=== PATIENT | male | born 1960 | race Caucasian/White ===

== ENCOUNTER 2020-05-04 23:19 | Observation (INO) ==
[2020-05-04] MEDS ORDERED: 0.9 % Sodium Chloride 1,000 ML ONE (23:35)
[2020-05-04] MEDS ORDERED: 0.9 % Sodium Chloride 1,000 ML IVC ONE (23:54)
[2020-05-05 00:05] LABS: Basophils % 0.2 %; Eosinophils % 0.1 %; Hematocrit 43.2 % (37.5-50.1); Hemoglobin 14.4 g/dL (12.9-16.9); Immature Granulocytes % 0.5 % (0-4); Lymphocytes # 1.5 K/mcL (0.6-4.6); Lymphocytes % 16.7 %; Mean Corpuscular HGB Conc 33.3 g/dL (31.6-35.5); Mean Corpuscular Hemoglobin 26.8 pg (28.0-33.3); Mean Corpuscular Volume 80.4 fL (83.0-100.0); Mean Platelet Volume 9.7 fL (9.4-12.4); Monocytes # 0.6 K/mcL (0.0-1.3); Neutrophils # 6.6 K/mcL (1.6-8.9); Platelet Count 303 K/mcL (140-400); Red Blood Count 5.37 M/mcL (4.19-5.50); Red Cell Distribution Width 12.7 % (11.5-14.5); Segmented Neutrophils % 75.5 %; White Blood Count 8.7 K/mcL (4.3-11.1)
[2020-05-05 00:12] LABS: Alanine Aminotransferase 31 Units/L (7-52); Albumin 2.8 g/dL (3.5-5.7); Albumin/Globulin Ratio 0.8 (1.1-2.2); Alkaline Phosphatase 130 Units/L (34-104); Aspartate Amino Transferase 28 Units/L (13-39); BUN/Creatinine Ratio 16 (6-26); Bilirubin,Total 0.7 mg/dL (0.3-1.0); Blood Urea Nitrogen 29 mg/dL (6-20); Calcium 8.2 mg/dL (8.6-10.3); Carbon Dioxide 22 mEq/L (23-29); Chloride 103 mEq/L (98-107); Globulin 3.3 g/dL (2.4-3.5); Glucose 166 mg/dL (70-105); Osmolality,Calculated 292 (280-300); Potassium 3.6 mEq/L (3.5-5.1); Sodium 136 mEq/L (136-145); Total Protein 6.1 g/dL (6.4-8.9); eGFR For African Americans 46 (> 60); eGFR For Non-African Americans 38 (> 60)
[2020-05-05 01:01] LABS: Troponin I < 0.03 ng/mL (< 0.04)
[2020-05-05] MEDS ORDERED: Azithromycin 500 MG in 0.9 % Sodium Chloride 250 ML IVPB ONE (02:14)
[2020-05-05] MEDS ORDERED: Acetaminophen 325 MG TABLET PO PRN (05:09)
[2020-05-05] MEDS ORDERED: Naloxone 0.4 MG/ML INJ IVP PRN (05:09)
[2020-05-05] MEDS ORDERED: Ondansetron 4 MG/2 ML VIAL IVP PRN (05:09)
[2020-05-05 06:23] LABS: Basophils % 0.3 %; Hematocrit 41.3 % (37.5-50.1); Hemoglobin 13.5 g/dL (12.9-16.9); Immature Granulocytes % 0.5 % (0-4); Lymphocytes % 17.6 %; Mean Corpuscular HGB Conc 32.7 g/dL (31.6-35.5); Mean Corpuscular Hemoglobin 27.1 pg (28.0-33.3); Mean Corpuscular Volume 82.8 fL (83.0-100.0); Monocytes # 0.5 K/mcL (0.0-1.3); Monocytes % 5.9 %; Platelet Count 315 K/mcL (140-400); Red Blood Count 4.99 M/mcL (4.19-5.50); Red Cell Distribution Width 12.7 % (11.5-14.5); Segmented Neutrophils % 75.7 %; White Blood Count 8.8 K/mcL (4.3-11.1)
[2020-05-05] MEDS: *HR* Heparin 5,000 UNIT/ML VIAL SQ SCH ×3 (06:23→20:53)
[2020-05-05 06:26] LABS: Lymphocytes # 1.6 K/mcL (0.6-4.6); Neutrophils # 6.7 K/mcL (1.6-8.9)
[2020-05-05 06:38] LABS: Albumin 2.8 g/dL (3.5-5.7); Albumin/Globulin Ratio 0.8 (1.1-2.2); Bilirubin,Total 0.6 mg/dL (0.3-1.0); Calcium 8.3 mg/dL (8.6-10.3); D-Dimer 626 ng/mLFEU (0-500); Globulin 3.4 g/dL (2.4-3.5); Potassium 3.9 mEq/L (3.5-5.1); Total Protein 6.2 g/dL (6.4-8.9)
[2020-05-05 06:39] LABS: Lactate Dehydrogenase 233 Units/L (140-271)
[2020-05-05 06:42] LABS: Fibrinogen > 1000 mg/dL (169-393)
[2020-05-05 06:52] LABS: Platelet Estimate Normal (Normal); Reactive Lymphocytes Present (Not Present); Smudge Cells Present (Not Present)
[2020-05-05 06:56] LABS: Ferritin 964 ng/mL (20-250)
[2020-05-05 06:58] LABS: Estimated Average Glucose 292 mg/dl
[2020-05-05] MEDS: Dexamethasone 4 MG/ML VIAL IVP SCH (09:15)
[2020-05-05 13:33] LABS: C-Reactive Protein 77 mg/L (Less than 10)
[2020-05-05] MEDS ORDERED: D5% in Water 1,000 ML IVC PRN (14:17)
[2020-05-05] MEDS ORDERED: Dextrose Gel 15 GM/37.5 ML TUBE PO PRN ×2 (14:17)
[2020-05-05] MEDS ORDERED: *HR* Dextrose 50 % in Water (Vial) 50 ML VIAL IVP PRN (14:17)
[2020-05-05 15:43] LABS: Estimated Average Glucose 292 mg/dl
[2020-05-05] MEDS: Insulin LISPRO 300 UNITS/3 ML VIAL SQ SCH (17:59)
[2020-05-05] MEDS ORDERED: Insulin LISPRO 300 UNITS/3 ML VIAL SQ SCH (21:00)
[2020-05-05] MEDS ORDERED: Insulin DETEMIR 100 UNIT/ML X5UNITS SQ SCH (21:00)
[2020-05-05 22:37] LABS: Bacteria,Urine Few per hpf (None-Few); Bilirubin,Urine Negative (Negative); Blood,Urine Small (Negative); Clarity,Urine Clear (Clear); Color,Urine Yellow (Yellow); Glucose,Urine (UA) >=1000 mg/dL (Normal); Hyaline Casts,Urine Few per lpf (None Seen); Ketones,Urine Trace mg/dL (Negative); Leukocyte Esterase,Urine Negative (Negative); Mucus,Urine Few per lpf (None-Few); Nitrite,Urine Negative (Negative); Protein,Urine >=300 mg/dL (Neg-Trace); RBC,Urine 0-3 per hpf (0-3); Specific Gravity,Urine 1.026 (1.010-1.025); Squamous Epithelial Cell,Urine Few per hpf (None-Few); Urobilinogen,Urine Normal (Normal)
[2020-05-06 04:12] VITALS: BP 172/93
[2020-05-06] MEDS ORDERED: amLODIPine 5 MG TABLET PO ONE (04:19)
[2020-05-06] MEDS: *HR* Heparin 5,000 UNIT/ML VIAL SQ SCH (04:25)
[2020-05-06 08:03] LABS: Hematocrit 38.8 % (37.5-50.1); Mean Corpuscular HGB Conc 33.5 g/dL (31.6-35.5); Mean Corpuscular Hemoglobin 27.1 pg (28.0-33.3); Mean Platelet Volume 10.2 fL (9.4-12.4); Platelet Count 325 K/mcL (140-400); Red Blood Count 4.79 M/mcL (4.19-5.50); Red Cell Distribution Width 12.4 % (11.5-14.5); White Blood Count 6.7 K/mcL (4.3-11.1)
[2020-05-06 08:12] LABS: D-Dimer 368 ng/mLFEU (0-500)
[2020-05-06 08:14] LABS: Fibrinogen 793 mg/dL (169-393)
[2020-05-06 08:23] LABS: Albumin 2.6 g/dL (3.5-5.7); Albumin/Globulin Ratio 0.9 (1.1-2.2); Bilirubin,Total 0.3 mg/dL (0.3-1.0); Calcium 8.4 mg/dL (8.6-10.3); Magnesium 2.3 mg/dL (1.6-2.6); Phosphorous 3.1 mg/dL (2.7-4.5); Potassium 3.7 mEq/L (3.5-5.1); Total Protein 5.6 g/dL (6.4-8.9)
[2020-05-06] MEDS: Insulin LISPRO 300 UNITS/3 ML VIAL SQ SCH (08:44)
[2020-05-06] MEDS: Dexamethasone 4 MG/ML VIAL IVP SCH (08:51)
[2020-05-06 09:15] LABS: Eosinophils # 0.1 K/mcL (0.0-0.6); Lymphocytes # 2.3 K/mcL (0.6-4.6); Monocytes # 0.3 K/mcL (0.0-1.3)
[2020-05-06 09:16] LABS: Platelet Estimate Normal (Normal); Reactive Lymphocytes Present (Not Present)
== END 2020-05-06 10:01 | disposition home or self-care (01) ==
LOC: 3BNU 23:19 → EMEROOARM 23:19 → 3BNU 05-05 05:16
PROVIDERS: ADMIT Student in an Organized Health Care Education/Training Program; ATTEND Student in an Organized Health Care Education/Training Program

== ENCOUNTER 2021-05-01 22:27 | Inpatient (IN) ==
[2021-05-02] MEDS ORDERED: Naloxone 0.4 MG/ML INJ IVP PRN (02:17)
[2021-05-02] MEDS ORDERED: Acetaminophen 325 MG TABLET PO PRN ×2 (02:17→02:19)
[2021-05-02] MEDS ORDERED: 0.9 % Sodium Chloride 1,000 ML IVC SCH (02:30)
[2021-05-02 03:05] LABS: Basophils % 0.4 %; Eosinophils # 0.3 K/mcL (0.0-0.6); Eosinophils % 2.6 %; Hematocrit 43.6 % (37.5-50.1); Hemoglobin 14.4 g/dL (12.9-16.9); Immature Granulocytes % 0.3 % (0-4); Lymphocytes # 2.7 K/mcL (0.6-4.6); Lymphocytes % 23.4 %; Mean Corpuscular Hemoglobin 27.8 pg (28.0-33.3); Mean Corpuscular Volume 84.2 fL (83.0-100.0); Mean Platelet Volume 9.9 fL (9.4-12.4); Monocytes # 0.8 K/mcL (0.0-1.3); Monocytes % 6.7 %; Neutrophils # 7.6 K/mcL (1.6-8.9); Platelet Count 416 K/mcL (140-400); Red Blood Count 5.18 M/mcL (4.19-5.50); Red Cell Distribution Width 13.2 % (11.5-14.5); Segmented Neutrophils % 66.6 %; White Blood Count 11.3 K/mcL (4.3-11.1)
[2021-05-02 03:11] LABS: INR 1.1; Prothrombin Time 12.1 Seconds (9.4-12.1)
[2021-05-02 03:13] LABS: Activated Partial Thrombo Time 34.9 Seconds (26.0-36.0)
[2021-05-02 03:30] LABS: Albumin 3.2 g/dL (3.5-5.7); Albumin/Globulin Ratio 1.1 (1.1-2.2); Bilirubin,Total 0.3 mg/dL (0.3-1.0); Calcium 8.9 mg/dL (8.6-10.3); Globulin 2.9 g/dL (2.4-3.5); Magnesium 2.2 mg/dL (1.6-2.6); Phosphorous 3.4 mg/dL (2.7-4.5); Potassium 4.3 mEq/L (3.5-5.1); Total Protein 6.1 g/dL (6.4-8.9)
[2021-05-02] MEDS: Ondansetron 4 MG/2 ML VIAL IVP PRN (05:04)
[2021-05-02] MEDS ORDERED: D5% in Water 1,000 ML IVC PRN (06:03)
[2021-05-02] MEDS ORDERED: Dextrose Gel 15 GM/37.5 ML TUBE PO PRN ×2 (06:03)
[2021-05-02] MEDS ORDERED: *HR* Dextrose 50 % in Water (Syg) 50 ML SYRINGE IVP PRN (06:03)
[2021-05-02] MEDS: Insulin LISPRO 300 UNITS/3 ML VIAL SUBQ SCH ×3 (08:16→17:25)
[2021-05-02] MEDS: Aspirin Enteric Coated 325 MG Tablet PO SCH (08:16)
[2021-05-02 09:56] LABS: Bacteria,Urine Few per hpf (None-Few); Bilirubin,Urine Negative (Negative); Blood,Urine Moderate (Negative); Clarity,Urine Clear (Clear); Color,Urine Colorless (Yellow); Glucose,Urine (UA) >=1000 mg/dL (Normal); Ketones,Urine Negative (Negative); Leukocyte Esterase,Urine Negative (Negative); Mucus,Urine Few per lpf (None-Few); Nitrite,Urine Negative (Negative); PH,Urine 6.5 pH Units (5.0-8.0); Protein,Urine >=300 mg/dL (Neg-Trace); RBC,Urine 0-3 per hpf (0-3); Specific Gravity,Urine 1.015 (1.010-1.025); Squamous Epithelial Cell,Urine Few per hpf (None-Few); Urobilinogen,Urine Normal (Normal); WBC,Urine 0-3 per hpf (0-3)
[2021-05-02] MEDS: Metoprolol XL (24 HR) Succ 50 MG TAB.ER.24H PO SCH (17:25)
[2021-05-02] MEDS: Valsartan 160 MG TABLET PO SCH (17:25)
[2021-05-02] MEDS ORDERED: *HR* Labetalol 20 MG/4 ML SYRINGE IVP ONE (23:10)
[2021-05-03 01:35] LABS: Basophils # 0.1 K/mcL (0.0-0.2); Basophils % 0.4 %; Eosinophils # 0.4 K/mcL (0.0-0.6); Eosinophils % 3.4 %; Hematocrit 38.8 % (37.5-50.1); Immature Granulocytes % 0.3 % (0-4); Lymphocytes # 3.2 K/mcL (0.6-4.6); Lymphocytes % 27.5 %; Mean Corpuscular HGB Conc 33.5 g/dL (31.6-35.5); Mean Corpuscular Hemoglobin 28.5 pg (28.0-33.3); Mean Corpuscular Volume 85.1 fL (83.0-100.0); Mean Platelet Volume 10.3 fL (9.4-12.4); Monocytes # 0.8 K/mcL (0.0-1.3); Monocytes % 7.2 %; Neutrophils # 7.1 K/mcL (1.6-8.9); Platelet Count 400 K/mcL (140-400); Red Blood Count 4.56 M/mcL (4.19-5.50); Red Cell Distribution Width 13.1 % (11.5-14.5); Segmented Neutrophils % 61.2 %; White Blood Count 11.6 K/mcL (4.3-11.1)
[2021-05-03 01:52] LABS: Calcium 8.3 mg/dL (8.6-10.3); Potassium 4.3 mEq/L (3.5-5.1)
[2021-05-03 02:17] LABS: Folate 5.8 ng/mL (3.0-16.0)
[2021-05-03] MEDS: Aspirin Enteric Coated 325 MG Tablet PO SCH (09:19)
[2021-05-03] MEDS: Metoprolol XL (24 HR) Succ 50 MG TAB.ER.24H PO SCH (09:19)
[2021-05-03] MEDS: Insulin LISPRO 300 UNITS/3 ML VIAL SUBQ SCH ×3 (09:19→17:50)
[2021-05-03] MEDS: Valsartan 160 MG TABLET PO SCH (09:19)
[2021-05-03] MEDS ORDERED: *HR* Labetalol 20 MG/4 ML SYRINGE IVP ONE ×2 (11:07→19:02)
[2021-05-03 12:59] LABS: Estimated Average Glucose 263 mg/dl; Hemoglobin A1C 10.8 %
[2021-05-03] MEDS ORDERED: Sodium Bicarbonate 75 MEQ in 0.45 % Sodium Chloride 1,000 ML IVC SCH (14:00)
[2021-05-03] MEDS: Fluticasone Propionate Nasal 50 MCG/SPRAY BOTTLE NS SCH (15:05)
[2021-05-03] MEDS: Ondansetron 4 MG/2 ML VIAL IVP PRN (15:06)
[2021-05-03] MEDS: hydrALAZINE 25 MG TABLET PO SCH ×2 (17:50→23:46)
[2021-05-04] MEDS: Fluticasone Propionate Nasal 50 MCG/SPRAY BOTTLE NS SCH (08:41)
[2021-05-04] MEDS: Metoprolol XL (24 HR) Succ 50 MG TAB.ER.24H PO SCH (08:42)
[2021-05-04] MEDS: Insulin LISPRO 300 UNITS/3 ML VIAL SUBQ SCH ×3 (08:42→17:50)
[2021-05-04] MEDS: hydrALAZINE 25 MG TABLET PO SCH ×3 (08:42→23:52)
[2021-05-04] MEDS: Valsartan 160 MG TABLET PO SCH (08:42)
[2021-05-04] MEDS: Aspirin Enteric Coated 325 MG Tablet PO SCH (08:42)
[2021-05-04] MEDS: amLODIPine 5 MG TABLET PO SCH (10:04)
[2021-05-04 10:25] LABS: Basophils # 0.1 K/mcL (0.0-0.2); Basophils % 0.7 %; Eosinophils # 0.4 K/mcL (0.0-0.6); Eosinophils % 4.4 %; Hematocrit 40.8 % (37.5-50.1); Hemoglobin 13.1 g/dL (12.9-16.9); Immature Granulocytes % 0.3 % (0-4); Lymphocytes % 20.5 %; Mean Corpuscular HGB Conc 32.1 g/dL (31.6-35.5); Mean Corpuscular Hemoglobin 27.4 pg (28.0-33.3); Mean Corpuscular Volume 85.4 fL (83.0-100.0); Mean Platelet Volume 10.5 fL (9.4-12.4); Monocytes # 0.7 K/mcL (0.0-1.3); Monocytes % 6.9 %; Neutrophils # 6.7 K/mcL (1.6-8.9); Platelet Count 381 K/mcL (140-400); Red Blood Count 4.78 M/mcL (4.19-5.50); Segmented Neutrophils % 67.2 %; White Blood Count 9.9 K/mcL (4.3-11.1)
[2021-05-04 10:45] LABS: Albumin 2.9 g/dL (3.5-5.7); Albumin/Globulin Ratio 1.1 (1.1-2.2); Bilirubin,Total 0.3 mg/dL (0.3-1.0); Calcium 8.4 mg/dL (8.6-10.3); Globulin 2.6 g/dL (2.4-3.5); Potassium 4.4 mEq/L (3.5-5.1); Total Protein 5.5 g/dL (6.4-8.9)
[2021-05-04] MEDS ORDERED: 0.9 % Sodium Chloride 1,000 ML IVC SCH (11:15)
[2021-05-04] MEDS ORDERED: Insulin DETEMIR 100 UNIT/ML X5UNITS SUBQ ONE (19:43)
[2021-05-04] MEDS ORDERED: Insulin LISPRO 300 UNITS/3 ML VIAL SUBQ SCH (21:00)
[2021-05-05 02:41] LABS: Basophils % 0.4 %; Eosinophils # 0.4 K/mcL (0.0-0.6); Eosinophils % 4.1 %; Hematocrit 35.9 % (37.5-50.1); Immature Granulocytes % 0.2 % (0-4); Lymphocytes # 2.5 K/mcL (0.6-4.6); Lymphocytes % 24.8 %; Mean Corpuscular HGB Conc 31.2 g/dL (31.6-35.5); Mean Corpuscular Volume 86.5 fL (83.0-100.0); Mean Platelet Volume 10.2 fL (9.4-12.4); Monocytes # 0.8 K/mcL (0.0-1.3); Monocytes % 8.3 %; Neutrophils # 6.3 K/mcL (1.6-8.9); Platelet Count 346 K/mcL (140-400); Red Blood Count 4.15 M/mcL (4.19-5.50); Segmented Neutrophils % 62.2 %; White Blood Count 10.2 K/mcL (4.3-11.1)
[2021-05-05 02:47] LABS: Hemoglobin 11.2 g/dL (12.9-16.9)
[2021-05-05 02:57] LABS: Albumin 2.6 g/dL (3.5-5.7); Albumin/Globulin Ratio 1.1 (1.1-2.2); Bilirubin,Total 0.2 mg/dL (0.3-1.0); Calcium 7.9 mg/dL (8.6-10.3); Globulin 2.3 g/dL (2.4-3.5); Potassium 4.1 mEq/L (3.5-5.1); Total Protein 4.9 g/dL (6.4-8.9)
[2021-05-05] MEDS ORDERED: Insulin LISPRO 300 UNITS/3 ML VIAL SUBQ SCH (07:30)
[2021-05-05 07:57] VITALS: BP 143/79; PULSE 82; TEMP 98.9; O2SAT 96
[2021-05-05] MEDS: Ondansetron 4 MG/2 ML VIAL IVP PRN (09:18)
[2021-05-05] MEDS: hydrALAZINE 25 MG TABLET PO SCH (09:20)
[2021-05-05] MEDS: Metoprolol XL (24 HR) Succ 50 MG TAB.ER.24H PO SCH (09:20)
[2021-05-05] MEDS: Aspirin Enteric Coated 325 MG Tablet PO SCH (09:21)
[2021-05-05] MEDS: amLODIPine 5 MG TABLET PO SCH (09:21)
[2021-05-05] MEDS: Valsartan 160 MG TABLET PO SCH (09:21)
== END 2021-05-05 11:23 | disposition home or self-care (01) | DRG 48 ==
LOC: 3BNU
PROVIDERS: ADMIT Student in an Organized Health Care Education/Training Program; ATTEND Student in an Organized Health Care Education/Training Program

== ENCOUNTER 2021-05-30 18:33 | Inpatient (IN) ==
[2021-05-30] MEDS ORDERED: *HR* Labetalol 20 MG/4 ML SYRINGE IVP ONE (23:23)
[2021-05-31] MEDS ORDERED: *HR* Heparin 5,000 UNIT/ML VIAL IVP PRN (01:55)
[2021-05-31] MEDS ORDERED: Perflutren Lipid Microsphere 1.3 ML in 0.9 % Sodium Chloride 8.7 ML IVP PRN (01:56)
[2021-05-31] MEDS ORDERED: Morphine Sulfate 2 MG/ML SYRINGE IVP PRN (01:57)
[2021-05-31] MEDS ORDERED: Nitroglycerin 0.4 MG TAB.SUBL SL PRN (02:02)
[2021-05-31] MEDS ORDERED: Menthol 1 EACH LOZENGE PO PRN (02:14)
[2021-05-31] MEDS ORDERED: Chloraseptic Spray 177 ML BOTTLE MM PRN (02:14)
[2021-05-31] MEDS ORDERED: Acetaminophen 325 MG TABLET PO PRN (02:17)
[2021-05-31] MEDS ORDERED: Naloxone 0.4 MG/ML INJ IVP PRN (02:17)
[2021-05-31] MEDS ORDERED: *HR* Dextrose 50 % in Water (Syg) 50 ML SYRINGE IVP PRN (02:21)
[2021-05-31] MEDS ORDERED: Dextrose Gel 15 GM/37.5 ML TUBE PO PRN ×2 (02:21)
[2021-05-31] MEDS ORDERED: D5% in Water 1,000 ML IVC PRN (02:21)
[2021-05-31] MEDS: Heparin 25,000UNIT/250ML 1/2NS 25,000 UNIT/250 ML IV.SOLN IVC SCH ×2 (02:22→22:08)
[2021-05-31] MEDS ORDERED: Azithromycin 500 MG in 0.9 % Sodium Chloride 250 ML IVPB SCH (03:00)
[2021-05-31] MEDS: Insulin LISPRO 300 UNITS/3 ML VIAL SUBQ SCH ×4 (05:53→23:25)
[2021-05-31] MEDS: cefTRIAXone 1,000 MG in 0.9 % Sodium Chloride Mini Bag 100 ML IVPB SCH ×2 (05:59→17:47)
[2021-05-31 06:38] LABS: Hematocrit 31.8 % (37.5-50.1); Hemoglobin 10.2 g/dL (12.9-16.9); Mean Corpuscular HGB Conc 32.1 g/dL (31.6-35.5); Mean Corpuscular Hemoglobin 28.1 pg (28.0-33.3); Mean Corpuscular Volume 87.6 fL (83.0-100.0); Mean Platelet Volume 10.1 fL (9.4-12.4); Platelet Count 434 K/mcL (140-400); Red Blood Count 3.63 M/mcL (4.19-5.50); Red Cell Distribution Width 12.6 % (11.5-14.5); White Blood Count 13.7 K/mcL (4.3-11.1)
[2021-05-31 06:48] LABS: Heparin anti-factor XA UFH 0.07 IU/mL (0.30-0.70); INR 1.2; Prothrombin Time 13.5 Seconds (9.4-12.1)
[2021-05-31 07:01] LABS: Calcium 8.3 mg/dL (8.6-10.3); Chol/HDL Ratio 5.8 (0-4.9); Magnesium 2.1 mg/dL (1.6-2.6); Potassium 3.7 mEq/L (3.5-5.1)
[2021-05-31] MEDS: Aspirin Enteric Coated 81 MG Tablet PO SCH (08:17)
[2021-05-31] MEDS ORDERED: *HR* Labetalol 20 MG/4 ML SYRINGE IVP PRN (08:41)
[2021-05-31 09:48] LABS: Estimated Average Glucose 229 mg/dl; Hemoglobin A1C 9.6 %
[2021-05-31] MEDS: Metoprolol XL (24 HR) Succ 50 MG TAB.ER.24H PO SCH (13:59)
[2021-05-31] MEDS: Azithromycin 500 MG in 0.9 % Sodium Chloride 250 ML IVPB SCH (17:49)
[2021-06-01] MEDS: Insulin LISPRO 300 UNITS/3 ML VIAL SUBQ SCH ×3 (05:15→17:19)
[2021-06-01] MEDS: cefTRIAXone 1,000 MG in 0.9 % Sodium Chloride Mini Bag 100 ML IVPB SCH ×2 (05:16→17:20)
[2021-06-01] MEDS: Aspirin Enteric Coated 81 MG Tablet PO SCH (08:24)
[2021-06-01] MEDS: Metoprolol XL (24 HR) Succ 50 MG TAB.ER.24H PO SCH (08:24)
[2021-06-01] MEDS: amLODIPine 5 MG TABLET PO SCH (11:59)
[2021-06-01 14:26] LABS: Hematocrit 33.7 % (37.5-50.1); Hemoglobin 10.5 g/dL (12.9-16.9); Mean Corpuscular HGB Conc 31.2 g/dL (31.6-35.5); Mean Corpuscular Hemoglobin 27.1 pg (28.0-33.3); Mean Corpuscular Volume 87.1 fL (83.0-100.0); Mean Platelet Volume 10.5 fL (9.4-12.4); Platelet Count 468 K/mcL (140-400); Red Blood Count 3.87 M/mcL (4.19-5.50); Red Cell Distribution Width 12.9 % (11.5-14.5)
[2021-06-01 14:54] LABS: Calcium 8.6 mg/dL (8.6-10.3)
[2021-06-01] MEDS: *HR* Heparin 5,000 UNIT/ML VIAL IVP PRN (15:28)
[2021-06-01] MEDS: Azithromycin 500 MG in 0.9 % Sodium Chloride 250 ML IVPB SCH (17:19)
[2021-06-02] MEDS: Insulin LISPRO 300 UNITS/3 ML VIAL SUBQ SCH ×4 (00:33→17:19)
[2021-06-02] MEDS: Heparin 25,000UNIT/250ML 1/2NS 25,000 UNIT/250 ML IV.SOLN IVC SCH (02:20)
[2021-06-02 05:03] LABS: Hematocrit 30.9 % (37.5-50.1); Hemoglobin 9.9 g/dL (12.9-16.9); Mean Corpuscular Hemoglobin 27.7 pg (28.0-33.3); Mean Corpuscular Volume 86.6 fL (83.0-100.0); Mean Platelet Volume 10.4 fL (9.4-12.4); Platelet Count 434 K/mcL (140-400); Red Blood Count 3.57 M/mcL (4.19-5.50); Red Cell Distribution Width 12.7 % (11.5-14.5); White Blood Count 14.1 K/mcL (4.3-11.1)
[2021-06-02] MEDS: cefTRIAXone 1,000 MG in 0.9 % Sodium Chloride Mini Bag 100 ML IVPB SCH ×2 (05:17→17:19)
[2021-06-02] MEDS: *HR* Heparin 5,000 UNIT/ML VIAL IVP PRN (05:20)
[2021-06-02 05:21] LABS: Calcium 8.2 mg/dL (8.6-10.3)
[2021-06-02] MEDS: Aspirin Enteric Coated 81 MG Tablet PO SCH (08:32)
[2021-06-02] MEDS: Metoprolol XL (24 HR) Succ 50 MG TAB.ER.24H PO SCH (08:32)
[2021-06-02] MEDS: amLODIPine 5 MG TABLET PO SCH (08:32)
[2021-06-02] MEDS: Azithromycin 500 MG in 0.9 % Sodium Chloride 250 ML IVPB SCH (17:20)
[2021-06-03] MEDS: Insulin LISPRO 300 UNITS/3 ML VIAL SUBQ SCH ×4 (00:46→17:34)
[2021-06-03] MEDS: Heparin 25,000UNIT/250ML 1/2NS 25,000 UNIT/250 ML IV.SOLN IVC SCH (05:00)
[2021-06-03] MEDS: cefTRIAXone 1,000 MG in 0.9 % Sodium Chloride Mini Bag 100 ML IVPB SCH ×2 (06:31→17:32)
[2021-06-03] MEDS: Metoprolol XL (24 HR) Succ 50 MG TAB.ER.24H PO SCH (08:40)
[2021-06-03] MEDS: Aspirin Enteric Coated 81 MG Tablet PO SCH (08:40)
[2021-06-03] MEDS: amLODIPine 5 MG TABLET PO SCH (08:41)
[2021-06-03 09:28] LABS: Hematocrit 32.2 % (37.5-50.1); Hemoglobin 10.1 g/dL (12.9-16.9); Mean Corpuscular HGB Conc 31.4 g/dL (31.6-35.5); Mean Corpuscular Hemoglobin 27.3 pg (28.0-33.3); Platelet Count 443 K/mcL (140-400); Red Cell Distribution Width 12.7 % (11.5-14.5); White Blood Count 14.6 K/mcL (4.3-11.1)
[2021-06-03 09:46] LABS: Calcium 8.8 mg/dL (8.6-10.3); Potassium 3.9 mEq/L (3.5-5.1)
[2021-06-03] MEDS: Azithromycin 500 MG in 0.9 % Sodium Chloride 250 ML IVPB SCH (21:35)
[2021-06-04] MEDS: 0.9 % Sodium Chloride 1,000 ML IVC SCH ×2 (02:07→19:44)
[2021-06-04] MEDS: Insulin LISPRO 300 UNITS/3 ML VIAL SUBQ SCH ×4 (02:07→18:32)
[2021-06-04] MEDS: cefTRIAXone 1,000 MG in 0.9 % Sodium Chloride Mini Bag 100 ML IVPB SCH ×2 (06:25→18:32)
[2021-06-04 06:52] LABS: Hematocrit 28.6 % (37.5-50.1); Hemoglobin 9.2 g/dL (12.9-16.9); Mean Corpuscular HGB Conc 32.2 g/dL (31.6-35.5); Mean Corpuscular Hemoglobin 28.3 pg (28.0-33.3); Mean Platelet Volume 10.2 fL (9.4-12.4); Platelet Count 413 K/mcL (140-400); Red Blood Count 3.25 M/mcL (4.19-5.50); Red Cell Distribution Width 12.8 % (11.5-14.5); White Blood Count 12.3 K/mcL (4.3-11.1)
[2021-06-04 07:10] LABS: Calcium 8.4 mg/dL (8.6-10.3); Potassium 3.9 mEq/L (3.5-5.1)
[2021-06-04] MEDS: amLODIPine 5 MG TABLET PO SCH (08:58)
[2021-06-04] MEDS: Metoprolol XL (24 HR) Succ 50 MG TAB.ER.24H PO SCH (08:59)
[2021-06-04] MEDS: Aspirin Enteric Coated 81 MG Tablet PO SCH (08:59)
[2021-06-04] MEDS ORDERED: *HR* Midazolam HCl 2 MG/2 ML VIAL ONE (15:33)
[2021-06-04] MEDS ORDERED: *HR* FentaNYL (PF) 100 MCG/2 ML VIAL ONE (15:33)
[2021-06-04] MEDS ORDERED: *HR* Heparin 10,000 UNIT/10 ML VIAL ONE (15:33)
[2021-06-04] MEDS ORDERED: Heparin 1,000 UNITS/500 mL 500 ML ONE (15:33)
[2021-06-04] MEDS ORDERED: ISOVUE-370 200 ML INFUS..BTL ONE (15:34)
[2021-06-04] MEDS ORDERED: 0.9 % Sodium Chloride 2,000 ML ONE (15:34)
[2021-06-04] MEDS ORDERED: Nitroglycerin 1,000 MCG/5 ML VIAL IV ONE (15:34)
[2021-06-04] MEDS ORDERED: *HR* Heparin 5,000 UNIT/ML VIAL IVP ONE (16:49)
[2021-06-04] MEDS ORDERED: *HR* Heparin 5,000 UNIT/ML VIAL IVP PRN (16:49)
[2021-06-04 18:26] LABS: Hematocrit 31.4 % (37.5-50.1); Mean Corpuscular HGB Conc 31.8 g/dL (31.6-35.5); Mean Corpuscular Hemoglobin 27.9 pg (28.0-33.3); Mean Corpuscular Volume 87.5 fL (83.0-100.0); Mean Platelet Volume 10.1 fL (9.4-12.4); Platelet Count 455 K/mcL (140-400); Red Blood Count 3.59 M/mcL (4.19-5.50); Red Cell Distribution Width 12.7 % (11.5-14.5); White Blood Count 12.6 K/mcL (4.3-11.1)
[2021-06-04 18:41] LABS: Heparin anti-factor XA UFH < 0.04 IU/mL (0.30-0.70); INR 1.2
[2021-06-04] MEDS: Heparin 25,000UNIT/250ML 1/2NS 25,000 UNIT/250 ML IV.SOLN IVC SCH (19:40)
[2021-06-04] MEDS: Azithromycin 500 MG in 0.9 % Sodium Chloride 250 ML IVPB SCH (19:43)
[2021-06-05] MEDS: Insulin LISPRO 300 UNITS/3 ML VIAL SUBQ SCH ×4 (00:12→17:30)
[2021-06-05 01:58] LABS: Basophils # 0.1 K/mcL (0.0-0.2); Basophils % 0.4 %; Eosinophils # 0.6 K/mcL (0.0-0.6); Eosinophils % 4.7 %; Hematocrit 30.4 % (37.5-50.1); Hemoglobin 9.4 g/dL (12.9-16.9); Immature Granulocytes % 1.1 % (0-4); Lymphocytes # 1.9 K/mcL (0.6-4.6); Lymphocytes % 15.2 %; Mean Corpuscular HGB Conc 30.9 g/dL (31.6-35.5); Mean Corpuscular Hemoglobin 27.4 pg (28.0-33.3); Mean Corpuscular Volume 88.6 fL (83.0-100.0); Mean Platelet Volume 10.3 fL (9.4-12.4); Monocytes # 1.1 K/mcL (0.0-1.3); Monocytes % 8.7 %; Neutrophils # 8.8 K/mcL (1.6-8.9); Platelet Count 384 K/mcL (140-400); Red Blood Count 3.43 M/mcL (4.19-5.50); Red Cell Distribution Width 12.8 % (11.5-14.5); Segmented Neutrophils % 69.9 %; White Blood Count 12.6 K/mcL (4.3-11.1)
[2021-06-05 02:16] LABS: Calcium 8.2 mg/dL (8.6-10.3); Potassium 4.1 mEq/L (3.5-5.1)
[2021-06-05] MEDS: cefTRIAXone 1,000 MG in 0.9 % Sodium Chloride Mini Bag 100 ML IVPB SCH ×2 (05:18→17:41)
[2021-06-05] MEDS ORDERED: Ondansetron 4 MG/2 ML VIAL IVP PRN (09:11)
[2021-06-05] MEDS: Metoprolol XL (24 HR) Succ 50 MG TAB.ER.24H PO SCH (09:12)
[2021-06-05] MEDS: calcitrioL 0.25 MCG CAPSULE PO SCH (09:13)
[2021-06-05] MEDS: amLODIPine 5 MG TABLET PO SCH (09:13)
[2021-06-05] MEDS: Aspirin Enteric Coated 81 MG Tablet PO SCH (09:13)
[2021-06-05] MEDS: Ergocalciferol (VIT D2) 50,000 UNIT (1.25MG) CAP PO SCH (09:13)
[2021-06-05] MEDS: *HR* Heparin 5,000 UNIT/ML VIAL IVP PRN (10:11)
[2021-06-05] MEDS: Heparin 25,000UNIT/250ML 1/2NS 25,000 UNIT/250 ML IV.SOLN IVC SCH (14:32)
[2021-06-05] MEDS: 0.9 % Sodium Chloride 1,000 ML IVC SCH (14:32)
[2021-06-05] MEDS: Isosorbide MONOnitrate (24 HR) 30 MG TAB.ER.24H PO SCH (16:24)
[2021-06-05] MEDS: Azithromycin 500 MG in 0.9 % Sodium Chloride 250 ML IVPB SCH (18:33)
[2021-06-06] MEDS: Insulin LISPRO 300 UNITS/3 ML VIAL SUBQ SCH ×5 (00:29→20:48)
[2021-06-06 04:07] LABS: Basophils # 0.1 K/mcL (0.0-0.2); Basophils % 0.4 %; Eosinophils # 0.6 K/mcL (0.0-0.6); Eosinophils % 4.2 %; Hematocrit 27.8 % (37.5-50.1); Immature Granulocytes % 0.9 % (0-4); Lymphocytes # 2.4 K/mcL (0.6-4.6); Lymphocytes % 18.1 %; Mean Corpuscular HGB Conc 32.4 g/dL (31.6-35.5); Mean Corpuscular Hemoglobin 28.7 pg (28.0-33.3); Mean Corpuscular Volume 88.5 fL (83.0-100.0); Mean Platelet Volume 10.3 fL (9.4-12.4); Monocytes # 1.1 K/mcL (0.0-1.3); Monocytes % 8.1 %; Platelet Count 384 K/mcL (140-400); Red Blood Count 3.14 M/mcL (4.19-5.50); Red Cell Distribution Width 12.9 % (11.5-14.5); Segmented Neutrophils % 68.3 %; White Blood Count 13.1 K/mcL (4.3-11.1)
[2021-06-06 04:08] LABS: Calcium 8.3 mg/dL (8.6-10.3); Potassium 3.9 mEq/L (3.5-5.1)
[2021-06-06] MEDS: Heparin 25,000UNIT/250ML 1/2NS 25,000 UNIT/250 ML IV.SOLN IVC SCH ×2 (05:30→21:48)
[2021-06-06] MEDS: cefTRIAXone 1,000 MG in 0.9 % Sodium Chloride Mini Bag 100 ML IVPB SCH ×2 (05:32→16:53)
[2021-06-06] MEDS: calcitrioL 0.25 MCG CAPSULE PO SCH (09:44)
[2021-06-06] MEDS: Isosorbide MONOnitrate (24 HR) 30 MG TAB.ER.24H PO SCH (09:44)
[2021-06-06] MEDS: Metoprolol XL (24 HR) Succ 50 MG TAB.ER.24H PO SCH (09:45)
[2021-06-06] MEDS: amLODIPine 5 MG TABLET PO SCH (09:45)
[2021-06-06] MEDS: Aspirin Enteric Coated 81 MG Tablet PO SCH (09:45)
[2021-06-07] MEDS: *HR* Heparin 5,000 UNIT/ML VIAL IVP PRN (00:05)
[2021-06-07] MEDS: cefTRIAXone 1,000 MG in 0.9 % Sodium Chloride Mini Bag 100 ML IVPB SCH ×2 (06:00→17:23)
[2021-06-07 07:33] LABS: Basophils # 0.1 K/mcL (0.0-0.2); Basophils % 0.4 %; Eosinophils # 0.5 K/mcL (0.0-0.6); Eosinophils % 3.5 %; Hematocrit 28.7 % (37.5-50.1); Hemoglobin 8.9 g/dL (12.9-16.9); Immature Granulocytes % 0.5 % (0-4); Lymphocytes # 2.5 K/mcL (0.6-4.6); Lymphocytes % 18.3 %; Mean Corpuscular Hemoglobin 27.1 pg (28.0-33.3); Mean Corpuscular Volume 87.5 fL (83.0-100.0); Mean Platelet Volume 10.3 fL (9.4-12.4); Monocytes # 1.1 K/mcL (0.0-1.3); Monocytes % 8.2 %; Neutrophils # 9.5 K/mcL (1.6-8.9); Platelet Count 368 K/mcL (140-400); Red Blood Count 3.28 M/mcL (4.19-5.50); Segmented Neutrophils % 69.1 %; White Blood Count 13.7 K/mcL (4.3-11.1)
[2021-06-07 07:52] LABS: Calcium 8.4 mg/dL (8.6-10.3); Potassium 4.3 mEq/L (3.5-5.1)
[2021-06-07] MEDS: Insulin LISPRO 300 UNITS/3 ML VIAL SUBQ SCH ×4 (08:35→21:34)
[2021-06-07] MEDS: Aspirin Enteric Coated 81 MG Tablet PO SCH (08:36)
[2021-06-07] MEDS: amLODIPine 5 MG TABLET PO SCH (08:36)
[2021-06-07] MEDS: Isosorbide MONOnitrate (24 HR) 30 MG TAB.ER.24H PO SCH (08:36)
[2021-06-07] MEDS: calcitrioL 0.25 MCG CAPSULE PO SCH (08:36)
[2021-06-07] MEDS: Metoprolol XL (24 HR) Succ 50 MG TAB.ER.24H PO SCH (08:36)
[2021-06-07 10:19] LABS: Bacteria,Urine Few per hpf (None-Few); Bilirubin,Urine Negative (Negative); Blood,Urine Small (Negative); Clarity,Urine Clear (Clear); Color,Urine Light-Yellow (Yellow); Glucose,Urine (UA) 300 mg/dL (Normal); Ketones,Urine Negative (Negative); Leukocyte Esterase,Urine Negative (Negative); Mucus,Urine Few per lpf (None-Few); Nitrite,Urine Negative (Negative); Protein,Urine >=300 mg/dL (Neg-Trace); RBC,Urine 0-3 per hpf (0-3); Specific Gravity,Urine 1.014 (1.010-1.025); Urobilinogen,Urine Normal (Normal); WBC,Urine 0-3 per hpf (0-3)
[2021-06-07] MEDS: Heparin 25,000UNIT/250ML 1/2NS 25,000 UNIT/250 ML IV.SOLN IVC SCH (10:43)
[2021-06-07 14:12] LABS: Adenovirus Not Detected (Not Detect); Bordetella Pertussis Not Detected (Not Detect); Chlamydophila pneumoniae Not Detected (Not Detect); Coronavirus 229E Not Detected (Not Detect); Coronavirus HKU1 Not Detected (Not Detect); Coronavirus NL63 Not Detected (Not Detect); Human Metapneumovirus Not Detected (Not Detect); Human Rhinovirus/Enterovirus Not Detected (Not Detect); Influenza A Subtype 2009 H1 Not Detected (Not Detect); Influenza B Not Detected (Not Detect); Mycoplasma pneumoniae Not Detected (Not Detect); Parainfluenza Virus 1 Not Detected (Not Detect); Parainfluenza Virus 2 Not Detected (Not Detect); Parainfluenza Virus 3 Not Detected (Not Detect); Parainfluenza Virus 4 Not Detected (Not Detect); Respiratory Syncytial Virus Not Detected (Not Detect); SARS-CoV-2 Not Detected (Not Detect)
[2021-06-07] MEDS ORDERED: carvediloL 6.25 MG TABLET PO SCH (17:00)
[2021-06-08] MEDS: Heparin 25,000UNIT/250ML 1/2NS 25,000 UNIT/250 ML IV.SOLN IVC SCH ×2 (00:32→14:11)
[2021-06-08 00:42] LABS: Basophils # 0.1 K/mcL (0.0-0.2); Basophils % 0.4 %; Eosinophils # 0.5 K/mcL (0.0-0.6); Eosinophils % 4.1 %; Hematocrit 28.1 % (37.5-50.1); Immature Granulocytes % 0.5 % (0-4); Lymphocytes # 2.7 K/mcL (0.6-4.6); Lymphocytes % 20.3 %; Mean Corpuscular Volume 87.3 fL (83.0-100.0); Mean Platelet Volume 10.3 fL (9.4-12.4); Monocytes % 7.6 %; Neutrophils # 8.9 K/mcL (1.6-8.9); Platelet Count 395 K/mcL (140-400); Red Blood Count 3.22 M/mcL (4.19-5.50); Red Cell Distribution Width 12.9 % (11.5-14.5); Segmented Neutrophils % 67.1 %; White Blood Count 13.3 K/mcL (4.3-11.1)
[2021-06-08 01:02] LABS: Calcium 8.3 mg/dL (8.6-10.3); Potassium 4.3 mEq/L (3.5-5.1)
[2021-06-08] MEDS: cefTRIAXone 1,000 MG in 0.9 % Sodium Chloride Mini Bag 100 ML IVPB SCH (05:10)
[2021-06-08] MEDS: Insulin LISPRO 300 UNITS/3 ML VIAL SUBQ SCH ×4 (08:45→21:26)
[2021-06-08] MEDS: amLODIPine 5 MG TABLET PO SCH (08:46)
[2021-06-08] MEDS: calcitrioL 0.25 MCG CAPSULE PO SCH (08:46)
[2021-06-08] MEDS: Aspirin Enteric Coated 81 MG Tablet PO SCH (08:46)
[2021-06-08] MEDS: carvediloL 6.25 MG TABLET PO SCH ×2 (08:46→16:19)
[2021-06-08] MEDS: Isosorbide MONOnitrate (24 HR) 30 MG TAB.ER.24H PO SCH (08:46)
[2021-06-08] MEDS: 0.9 % Sodium Chloride 1,000 ML IVC SCH (23:16)
[2021-06-09] MEDS: Heparin 25,000UNIT/250ML 1/2NS 25,000 UNIT/250 ML IV.SOLN IVC SCH (02:39)
[2021-06-09] MEDS ORDERED: 0.9 % Sodium Chloride 1,000 ML IVC SCH (03:00)
[2021-06-09 06:06] LABS: Basophils # 0.1 K/mcL (0.0-0.2); Basophils % 0.5 %; Eosinophils # 0.5 K/mcL (0.0-0.6); Eosinophils % 4.2 %; Hematocrit 29.5 % (37.5-50.1); Hemoglobin 9.4 g/dL (12.9-16.9); Immature Granulocytes % 0.6 % (0-4); Lymphocytes # 2.9 K/mcL (0.6-4.6); Lymphocytes % 24.5 %; Mean Corpuscular HGB Conc 31.9 g/dL (31.6-35.5); Mean Corpuscular Hemoglobin 28.1 pg (28.0-33.3); Mean Corpuscular Volume 88.3 fL (83.0-100.0); Mean Platelet Volume 10.8 fL (9.4-12.4); Monocytes % 8.5 %; Neutrophils # 7.4 K/mcL (1.6-8.9); Platelet Count 415 K/mcL (140-400); Red Blood Count 3.34 M/mcL (4.19-5.50); Segmented Neutrophils % 61.7 %
[2021-06-09 06:17] LABS: Calcium 8.7 mg/dL (8.6-10.3); Potassium 4.4 mEq/L (3.5-5.1)
[2021-06-09] MEDS: Insulin LISPRO 300 UNITS/3 ML VIAL SUBQ SCH ×4 (08:28→20:32)
[2021-06-09] MEDS: Aspirin Enteric Coated 81 MG Tablet PO SCH (08:30)
[2021-06-09] MEDS: Isosorbide MONOnitrate (24 HR) 30 MG TAB.ER.24H PO SCH (08:30)
[2021-06-09] MEDS: calcitrioL 0.25 MCG CAPSULE PO SCH (08:30)
[2021-06-09] MEDS: carvediloL 6.25 MG TABLET PO SCH ×2 (08:31→16:32)
[2021-06-09] MEDS: amLODIPine 5 MG TABLET PO SCH (08:31)
[2021-06-09] MEDS: Ergocalciferol (VIT D2) 50,000 UNIT (1.25MG) CAP PO SCH (08:37)
[2021-06-09] MEDS ORDERED: 0.9 % Sodium Chloride 2,000 ML ONE (09:43)
[2021-06-09] MEDS ORDERED: *HR* Midazolam HCl 2 MG/2 ML VIAL ONE (09:43)
[2021-06-09] MEDS ORDERED: *HR* FentaNYL (PF) 100 MCG/2 ML VIAL ONE (09:43)
[2021-06-09] MEDS ORDERED: Heparin 1,000 UNITS/500 mL 500 ML ONE (09:43)
[2021-06-09] MEDS ORDERED: ISOVUE-370 200 ML INFUS..BTL ONE (09:44)
[2021-06-09] MEDS ORDERED: *HR* Heparin 10,000 UNIT/10 ML VIAL ONE (09:44)
[2021-06-09] MEDS ORDERED: Nitroglycerin 1,000 MCG/5 ML VIAL IV ONE (09:44)
[2021-06-09] MEDS ORDERED: Tirofiban 12.5 MG/250ML 12.5 MG/250 ML BAG ONE (09:55)
[2021-06-09] MEDS ORDERED: Tirofiban 12.5 MG/250ML 12.5 MG/250 ML BAG IVC SCH (11:00)
[2021-06-09] MEDS: 0.9 % Sodium Chloride 1,000 ML IVC SCH (16:33)
[2021-06-10] MEDS: Insulin LISPRO 300 UNITS/3 ML VIAL SUBQ SCH ×3 (08:07→16:46)
[2021-06-10 08:08] LABS: Basophils % 0.3 %; Eosinophils # 0.4 K/mcL (0.0-0.6); Eosinophils % 3.7 %; Hematocrit 29.5 % (37.5-50.1); Immature Granulocytes % 0.4 % (0-4); Lymphocytes % 18.1 %; Mean Corpuscular HGB Conc 30.5 g/dL (31.6-35.5); Mean Corpuscular Hemoglobin 27.1 pg (28.0-33.3); Mean Corpuscular Volume 88.9 fL (83.0-100.0); Mean Platelet Volume 10.7 fL (9.4-12.4); Monocytes # 0.9 K/mcL (0.0-1.3); Monocytes % 8.2 %; Neutrophils # 7.8 K/mcL (1.6-8.9); Platelet Count 446 K/mcL (140-400); Red Blood Count 3.32 M/mcL (4.19-5.50); Red Cell Distribution Width 13.1 % (11.5-14.5); Segmented Neutrophils % 69.3 %; White Blood Count 11.3 K/mcL (4.3-11.1)
[2021-06-10] MEDS: amLODIPine 5 MG TABLET PO SCH (08:08)
[2021-06-10] MEDS: Aspirin Enteric Coated 81 MG Tablet PO SCH (08:08)
[2021-06-10] MEDS: Isosorbide MONOnitrate (24 HR) 30 MG TAB.ER.24H PO SCH (08:09)
[2021-06-10] MEDS: carvediloL 6.25 MG TABLET PO SCH ×2 (08:09→16:47)
[2021-06-10] MEDS: calcitrioL 0.25 MCG CAPSULE PO SCH (08:09)
[2021-06-10 08:36] LABS: Calcium 8.8 mg/dL (8.6-10.3)
[2021-06-10 11:01] VITALS: BP 130/74; PULSE 77; TEMP 98; O2SAT 94
[2021-06-12 14:54] LABS: Coronavirus OC43 DETECTED (Not Detect)
== END 2021-06-10 17:08 | disposition home or self-care (01) | DRG 174 ==
LOC: 3BNU → SUATTDRO 22:25
PROVIDERS: ADMIT Family Medicine; ATTEND Internal Medicine

== ENCOUNTER 2021-09-01 16:09 | Inpatient (IN) ==
[2021-09-01 18:18] LABS: Basophils # 0.1 K/mcL (0.0-0.2); Basophils % 0.2 %; Eosinophils # 0.1 K/mcL (0.0-0.6); Eosinophils % 0.3 %; Hemoglobin 12.6 g/dL (12.9-16.9); Immature Granulocytes % 0.5 % (0-4); Lymphocytes # 1.3 K/mcL (0.6-4.6); Lymphocytes % 5.7 %; Mean Corpuscular HGB Conc 33.2 g/dL (31.6-35.5); Mean Corpuscular Hemoglobin 27.3 pg (28.0-33.3); Mean Corpuscular Volume 82.4 fL (83.0-100.0); Mean Platelet Volume 9.3 fL (9.4-12.4); Monocytes # 1.5 K/mcL (0.0-1.3); Monocytes % 6.5 %; Neutrophils # 20.3 K/mcL (1.6-8.9); Platelet Count 641 K/mcL (140-400); Red Blood Count 4.61 M/mcL (4.19-5.50); Red Cell Distribution Width 13.5 % (11.5-14.5); Segmented Neutrophils % 86.8 %; White Blood Count 23.4 K/mcL (4.3-11.1)
[2021-09-01] MEDS ORDERED: Piperacillin/Tazobactam 3.375 GM in 0.9 % Sodium Chloride Mini Bag 100 ML IVPB ONE (18:31)
[2021-09-01 18:37] LABS: Albumin 3.2 g/dL (3.5-5.7); Albumin/Globulin Ratio 0.7 (1.1-2.2); Bilirubin,Total 0.4 mg/dL (0.3-1.0); Calcium 9.2 mg/dL (8.6-10.3); Globulin 4.5 g/dL (2.4-3.5); Total Protein 7.7 g/dL (6.4-8.9)
[2021-09-01] MEDS ORDERED: Acetaminophen 325 MG TABLET PO PRN (20:32)
[2021-09-01] MEDS ORDERED: Melatonin 3 MG TABLET PO PRN (20:32)
[2021-09-01] MEDS ORDERED: *HR* Promethazine 25 MG/ML VIAL IM PRN (20:32)
[2021-09-01] MEDS ORDERED: Ondansetron 4 MG/2 ML VIAL IVP PRN (20:32)
[2021-09-01] MEDS ORDERED: *HR* HYDROcodone/Acet 5/325 mg TABLET PO PRN (20:32)
[2021-09-01] MEDS ORDERED: Naloxone 0.4 MG/ML INJ IVP PRN (20:32)
[2021-09-01] MEDS ORDERED: *HR* OxyCODONE Immed Rel 5 MG TABLET PO PRN (20:32)
[2021-09-01] MEDS ORDERED: *HR* Dextrose 50 % in Water (Syg) 50 ML SYRINGE IVP PRN (20:36)
[2021-09-01] MEDS ORDERED: D5% in Water 1,000 ML IVC PRN (20:36)
[2021-09-01] MEDS ORDERED: Dextrose 4 GM Chewable Tablets PO PRN ×2 (20:36)
[2021-09-01] MEDS ORDERED: Insulin DETEMIR 100 UNIT/ML X5UNITS SUBQ SCH (21:00)
[2021-09-01] MEDS: Ringers Solution, Lactated 1,000 ML IVC SCH (22:31)
[2021-09-01] MEDS: *HR* Labetalol 20 MG/4 ML SYRINGE IVP PRN (23:07)
[2021-09-01] MEDS: Insulin LISPRO 300 UNITS/3 ML VIAL SUBQ SCH (23:54)
[2021-09-02 00:58] LABS: Basophils % 0.2 %; Eosinophils # 0.1 K/mcL (0.0-0.6); Eosinophils % 0.3 %; Hematocrit 32.3 % (37.5-50.1); Immature Granulocytes % 0.5 % (0-4); Lymphocytes # 1.9 K/mcL (0.6-4.6); Lymphocytes % 9.2 %; Mean Corpuscular HGB Conc 33.4 g/dL (31.6-35.5); Mean Corpuscular Hemoglobin 27.4 pg (28.0-33.3); Mean Platelet Volume 9.5 fL (9.4-12.4); Monocytes # 1.6 K/mcL (0.0-1.3); Monocytes % 7.8 %; Neutrophils # 17.3 K/mcL (1.6-8.9); Platelet Count 585 K/mcL (140-400); Red Blood Count 3.94 M/mcL (4.19-5.50); Red Cell Distribution Width 13.3 % (11.5-14.5); White Blood Count 21.1 K/mcL (4.3-11.1)
[2021-09-02 01:01] LABS: Hemoglobin 10.8 g/dL (12.9-16.9)
[2021-09-02 01:09] LABS: INR 1.4; Prothrombin Time 15.9 Seconds (9.4-12.1)
[2021-09-02 01:20] LABS: Albumin 2.7 g/dL (3.5-5.7); Albumin/Globulin Ratio 0.7 (1.1-2.2); Bilirubin,Total 0.4 mg/dL (0.3-1.0); Calcium 8.7 mg/dL (8.6-10.3); Chol/HDL Ratio 3.6 (0-4.9); Globulin 3.7 g/dL (2.4-3.5); Magnesium 1.9 mg/dL (1.6-2.6); Potassium 3.4 mEq/L (3.5-5.1); Total Protein 6.4 g/dL (6.4-8.9)
[2021-09-02] MEDS: Piperacillin/Tazobactam 3.375 GM in 0.9 % Sodium Chloride Mini Bag 100 ML IVPB SCH ×3 (03:03→20:31)
[2021-09-02] MEDS: Insulin LISPRO 300 UNITS/3 ML VIAL SUBQ SCH ×3 (05:33→17:35)
[2021-09-02 08:34] LABS: Hematocrit 34.6 % (37.5-50.1); Hemoglobin 11.2 g/dL (12.9-16.9)
[2021-09-02] MEDS: Aspirin Enteric Coated 81 MG Tablet PO SCH (09:04)
[2021-09-02] MEDS: carvediloL 6.25 MG TABLET PO SCH ×2 (09:04→15:35)
[2021-09-02] MEDS: Ringers Solution, Lactated 1,000 ML IVC SCH (09:04)
[2021-09-02 09:12] LABS: Estimated Average Glucose 258 mg/dl; Hemoglobin A1C 10.6 %
[2021-09-02 11:20] LABS: Uric Acid 6.3 mg/dL (2.3-7.6)
[2021-09-02] MEDS ORDERED: DAPTOmycin 550 MG in 0.9 % Sodium Chloride 100 ML IVPB SCH (15:00)
[2021-09-02] MEDS: 0.9 % Sodium Chloride 1,000 ML IVC SCH (15:13)
[2021-09-02] MEDS: polyethylene glycoL 3350 17 GM POWD.PACK PO SCH (20:30)
[2021-09-02 20:33] LABS: Bilirubin,Urine Negative (Negative); Blood,Urine Small (Negative); Clarity,Urine Clear (Clear); Color,Urine Light-Yellow (Yellow); Glucose,Urine (UA) 500 mg/dL (Normal); Ketones,Urine Negative (Negative); Leukocyte Esterase,Urine Negative (Negative); Mucus,Urine Few per lpf (None-Few); Nitrite,Urine Negative (Negative); Protein,Urine >=300 mg/dL (Neg-Trace); RBC,Urine 0-3 per hpf (0-3); Specific Gravity,Urine 1.016 (1.010-1.025); Squamous Epithelial Cell,Urine Few per hpf (None-Few); Urobilinogen,Urine Normal (Normal); WBC,Urine 0-3 per hpf (0-3)
[2021-09-02] MEDS: Insulin DETEMIR 100 UNIT/ML X5UNITS SUBQ SCH (20:34)
[2021-09-02 20:55] LABS: Protein/Creatinine Ratio,Urine 6.8 mg/mg (0.00-0.20); Sodium, Urine 52.3 mEq/L
[2021-09-03] MEDS: Insulin LISPRO 300 UNITS/3 ML VIAL SUBQ SCH ×5 (00:45→21:12)
[2021-09-03] MEDS: 0.9 % Sodium Chloride 1,000 ML IVC SCH (04:33)
[2021-09-03] MEDS: Piperacillin/Tazobactam 3.375 GM in 0.9 % Sodium Chloride Mini Bag 100 ML IVPB SCH ×3 (04:34→21:17)
[2021-09-03] MEDS: *HR* Labetalol 20 MG/4 ML SYRINGE IVP PRN (05:10)
[2021-09-03 05:56] LABS: Hematocrit 33.6 % (37.5-50.1); Mean Corpuscular HGB Conc 32.7 g/dL (31.6-35.5); Mean Corpuscular Hemoglobin 26.6 pg (28.0-33.3); Mean Corpuscular Volume 81.4 fL (83.0-100.0); Mean Platelet Volume 9.6 fL (9.4-12.4); Platelet Count 529 K/mcL (140-400); Red Blood Count 4.13 M/mcL (4.19-5.50); Red Cell Distribution Width 13.3 % (11.5-14.5)
[2021-09-03 06:04] LABS: Calcium 8.5 mg/dL (8.6-10.3); Potassium 3.5 mEq/L (3.5-5.1)
[2021-09-03] MEDS: carvediloL 6.25 MG TABLET PO SCH ×2 (09:26→18:28)
[2021-09-03] MEDS: Aspirin Enteric Coated 81 MG Tablet PO SCH (09:26)
[2021-09-03] MEDS: polyethylene glycoL 3350 17 GM POWD.PACK PO SCH ×2 (09:26→21:20)
[2021-09-03] MEDS: *HR* Heparin 5,000 UNIT/ML VIAL SQ SCH ×2 (14:41→21:18)
[2021-09-03] MEDS: Insulin DETEMIR 100 UNIT/ML X5UNITS SUBQ SCH (21:17)
[2021-09-04 02:15] LABS: Hematocrit 32.7 % (37.5-50.1); Mean Corpuscular HGB Conc 33.6 g/dL (31.6-35.5); Mean Corpuscular Hemoglobin 27.8 pg (28.0-33.3); Mean Corpuscular Volume 82.8 fL (83.0-100.0); Mean Platelet Volume 9.8 fL (9.4-12.4); Platelet Count 514 K/mcL (140-400); Red Blood Count 3.95 M/mcL (4.19-5.50); Red Cell Distribution Width 13.4 % (11.5-14.5); White Blood Count 16.2 K/mcL (4.3-11.1)
[2021-09-04] MEDS: *HR* Heparin 5,000 UNIT/ML VIAL SQ SCH ×3 (04:27→21:07)
[2021-09-04] MEDS: Piperacillin/Tazobactam 3.375 GM in 0.9 % Sodium Chloride Mini Bag 100 ML IVPB SCH ×3 (04:27→19:46)
[2021-09-04] MEDS: Insulin LISPRO 300 UNITS/3 ML VIAL SUBQ SCH ×4 (08:17→20:13)
[2021-09-04] MEDS: Aspirin Enteric Coated 81 MG Tablet PO SCH (08:26)
[2021-09-04] MEDS: carvediloL 6.25 MG TABLET PO SCH ×2 (08:26→16:40)
[2021-09-04] MEDS: polyethylene glycoL 3350 17 GM POWD.PACK PO SCH (08:27)
[2021-09-04 09:38] LABS: Calcium 8.8 mg/dL (8.6-10.3); Potassium 4.6 mEq/L (3.5-5.1)
[2021-09-04] MEDS ORDERED: polyethylene glycoL 3350 17 GM POWD.PACK PO PRN (10:12)
[2021-09-04] MEDS ORDERED: DAPTOmycin 750 MG in 0.9 % Sodium Chloride 100 ML IVPB SCH (16:00)
[2021-09-04] MEDS: *HR* Labetalol 20 MG/4 ML SYRINGE IVP PRN (21:07)
[2021-09-04] MEDS: Insulin DETEMIR 100 UNIT/ML X5UNITS SUBQ SCH (21:08)
[2021-09-05] MEDS: *HR* Labetalol 20 MG/4 ML SYRINGE IVP PRN ×2 (01:45→20:28)
[2021-09-05] MEDS: Piperacillin/Tazobactam 3.375 GM in 0.9 % Sodium Chloride Mini Bag 100 ML IVPB SCH ×3 (04:18→20:18)
[2021-09-05] MEDS: *HR* Heparin 5,000 UNIT/ML VIAL SQ SCH ×3 (05:22→20:21)
[2021-09-05 05:45] LABS: Hematocrit 32.3 % (37.5-50.1); Hemoglobin 10.7 g/dL (12.9-16.9); Mean Corpuscular HGB Conc 33.1 g/dL (31.6-35.5); Mean Corpuscular Hemoglobin 27.6 pg (28.0-33.3); Mean Corpuscular Volume 83.2 fL (83.0-100.0); Mean Platelet Volume 9.5 fL (9.4-12.4); Platelet Count 612 K/mcL (140-400); Red Blood Count 3.88 M/mcL (4.19-5.50); Red Cell Distribution Width 13.5 % (11.5-14.5); White Blood Count 15.1 K/mcL (4.3-11.1)
[2021-09-05 06:25] LABS: Calcium 8.9 mg/dL (8.6-10.3); Potassium 3.4 mEq/L (3.5-5.1)
[2021-09-05] MEDS: Insulin LISPRO 300 UNITS/3 ML VIAL SUBQ SCH ×4 (07:22→22:15)
[2021-09-05] MEDS: Aspirin Enteric Coated 81 MG Tablet PO SCH (07:57)
[2021-09-05] MEDS: carvediloL 6.25 MG TABLET PO SCH ×2 (07:57→16:05)
[2021-09-05] MEDS ORDERED: Lidocaine -MPF 2% 5 ML VIAL ONE (08:35)
[2021-09-05] MEDS ORDERED: *HR* FentaNYL (PF) 100 MCG/2 ML VIAL ONE (08:36)
[2021-09-05] MEDS ORDERED: Ringers Solution, Lactated 1,000 ML IVC SCH (09:00)
[2021-09-05] MEDS ORDERED: *HR* OxyCODONE Immed Rel 5 MG TABLET PO PRN (10:20)
[2021-09-05] MEDS ORDERED: Acetaminophen 325 MG TABLET PO PRN (10:20)
[2021-09-05] MEDS ORDERED: *HR* Promethazine 25 MG/ML VIAL IM PRN (10:20)
[2021-09-05] MEDS ORDERED: Naloxone 0.4 MG/ML INJ IVP PRN (10:20)
[2021-09-05] MEDS ORDERED: D5% in Water 1,000 ML IVC PRN (10:20)
[2021-09-05] MEDS ORDERED: polyethylene glycoL 3350 17 GM POWD.PACK PO PRN (10:20)
[2021-09-05] MEDS ORDERED: *HR* HYDROcodone/Acet 5/325 mg TABLET PO PRN (10:20)
[2021-09-05] MEDS ORDERED: Dextrose 4 GM Chewable Tablets PO PRN ×2 (10:20)
[2021-09-05] MEDS ORDERED: Ondansetron 4 MG/2 ML VIAL IVP PRN (10:20)
[2021-09-05] MEDS ORDERED: *HR* Dextrose 50 % in Water (Syg) 50 ML SYRINGE IVP PRN (10:20)
[2021-09-05] MEDS: Ringers Solution, Lactated 1,000 ML IVC SCH (10:51)
[2021-09-05] MEDS: Sodium Bicarbonate 150 MEQ in D5% in Water 1,000 ML IVC SCH (16:05)
[2021-09-05] MEDS: Insulin DETEMIR 100 UNIT/ML X5UNITS SUBQ SCH (22:15)
[2021-09-06] MEDS: *HR* Labetalol 20 MG/4 ML SYRINGE IVP PRN (00:25)
[2021-09-06] MEDS: Melatonin 3 MG TABLET PO PRN (00:25)
[2021-09-06] MEDS: Sodium Bicarbonate 150 MEQ in D5% in Water 1,000 ML IVC SCH ×2 (03:20→15:00)
[2021-09-06] MEDS: Piperacillin/Tazobactam 3.375 GM in 0.9 % Sodium Chloride Mini Bag 100 ML IVPB SCH ×3 (05:20→20:24)
[2021-09-06] MEDS: *HR* Heparin 5,000 UNIT/ML VIAL SQ SCH ×3 (05:22→20:21)
[2021-09-06 07:07] LABS: Basophils # 0.1 K/mcL (0.0-0.2); Basophils % 0.6 %; Eosinophils # 0.5 K/mcL (0.0-0.6); Eosinophils % 4.4 %; Hemoglobin 10.3 g/dL (12.9-16.9); Immature Granulocytes % 0.3 % (0-4); Lymphocytes # 2.2 K/mcL (0.6-4.6); Mean Corpuscular HGB Conc 33.2 g/dL (31.6-35.5); Mean Corpuscular Volume 81.4 fL (83.0-100.0); Mean Platelet Volume 8.9 fL (9.4-12.4); Monocytes # 0.9 K/mcL (0.0-1.3); Monocytes % 7.7 %; Neutrophils # 8.4 K/mcL (1.6-8.9); Platelet Count 553 K/mcL (140-400); Red Blood Count 3.81 M/mcL (4.19-5.50); Red Cell Distribution Width 13.6 % (11.5-14.5); White Blood Count 12.2 K/mcL (4.3-11.1)
[2021-09-06 07:27] LABS: Calcium 8.7 mg/dL (8.6-10.3); Phosphorous 4.2 mg/dL (2.7-4.5); Potassium 3.7 mEq/L (3.5-5.1)
[2021-09-06] MEDS ORDERED: Isosorbide MONOnitrate (24 HR) 30 MG TAB.ER.24H PO SCH (09:00)
[2021-09-06] MEDS: Insulin LISPRO 300 UNITS/3 ML VIAL SUBQ SCH ×4 (09:09→20:22)
[2021-09-06] MEDS: carvediloL 6.25 MG TABLET PO SCH ×2 (09:10→16:43)
[2021-09-06] MEDS: Aspirin Enteric Coated 81 MG Tablet PO SCH (09:10)
[2021-09-06] MEDS: Isosorbide MONOnitrate (24 HR) 30 MG TAB.ER.24H PO SCH (09:10)
[2021-09-06] MEDS ORDERED: Cyanocobalamin (B-12) 1,000 MCG/ML VIAL SQ ONE (12:42)
[2021-09-06] MEDS: Ringers Solution, Lactated 1,000 ML IVC SCH (14:39)
[2021-09-06] MEDS: DAPTOmycin 750 MG in 0.9 % Sodium Chloride 100 ML IVPB SCH (16:44)
[2021-09-06] MEDS: Insulin DETEMIR 100 UNIT/ML X5UNITS SUBQ SCH (20:23)
[2021-09-07] MEDS: Melatonin 3 MG TABLET PO PRN (00:29)
[2021-09-07] MEDS: Sodium Bicarbonate 150 MEQ in D5% in Water 1,000 ML IVC SCH ×2 (01:33→12:14)
[2021-09-07 01:52] LABS: Basophils # 0.1 K/mcL (0.0-0.2); Basophils % 0.5 %; Eosinophils # 0.4 K/mcL (0.0-0.6); Eosinophils % 3.2 %; Hemoglobin 9.3 g/dL (12.9-16.9); Immature Granulocytes % 0.5 % (0-4); Lymphocytes # 2.5 K/mcL (0.6-4.6); Lymphocytes % 18.7 %; Mean Corpuscular HGB Conc 33.2 g/dL (31.6-35.5); Mean Corpuscular Hemoglobin 27.2 pg (28.0-33.3); Mean Corpuscular Volume 81.9 fL (83.0-100.0); Monocytes % 7.3 %; Neutrophils # 9.3 K/mcL (1.6-8.9); Platelet Count 531 K/mcL (140-400); Red Blood Count 3.42 M/mcL (4.19-5.50); Red Cell Distribution Width 13.5 % (11.5-14.5); Segmented Neutrophils % 69.8 %; White Blood Count 13.3 K/mcL (4.3-11.1)
[2021-09-07 02:16] LABS: Calcium 8.1 mg/dL (8.6-10.3); Magnesium 1.9 mg/dL (1.6-2.6); Potassium 3.5 mEq/L (3.5-5.1)
[2021-09-07] MEDS: Piperacillin/Tazobactam 3.375 GM in 0.9 % Sodium Chloride Mini Bag 100 ML IVPB SCH ×2 (04:54→17:17)
[2021-09-07] MEDS: *HR* Heparin 5,000 UNIT/ML VIAL SQ SCH ×3 (04:54→20:48)
[2021-09-07] MEDS: Isosorbide MONOnitrate (24 HR) 30 MG TAB.ER.24H PO SCH (07:44)
[2021-09-07] MEDS: Aspirin Enteric Coated 81 MG Tablet PO SCH (07:44)
[2021-09-07] MEDS: carvediloL 6.25 MG TABLET PO SCH ×2 (07:45→17:16)
[2021-09-07] MEDS: Insulin LISPRO 300 UNITS/3 ML VIAL SUBQ SCH ×4 (07:45→20:49)
[2021-09-07] MEDS: Sodium Bicarbonate 75 MEQ in 0.45 % Sodium Chloride 1,000 ML IVC SCH (15:14)
[2021-09-07] MEDS: hydrALAZINE 10 MG TABLET PO SCH ×2 (15:14→20:49)
[2021-09-07] MEDS: Insulin DETEMIR 100 UNIT/ML X5UNITS SUBQ SCH (20:49)
[2021-09-08 02:03] LABS: Basophils # 0.1 K/mcL (0.0-0.2); Basophils % 0.3 %; Eosinophils # 0.6 K/mcL (0.0-0.6); Eosinophils % 3.9 %; Hematocrit 29.2 % (37.5-50.1); Hemoglobin 9.6 g/dL (12.9-16.9); Immature Granulocytes % 0.6 % (0-4); Lymphocytes # 3.3 K/mcL (0.6-4.6); Lymphocytes % 22.6 %; Mean Corpuscular HGB Conc 32.9 g/dL (31.6-35.5); Mean Corpuscular Volume 82.3 fL (83.0-100.0); Mean Platelet Volume 8.7 fL (9.4-12.4); Monocytes % 6.7 %; Neutrophils # 9.5 K/mcL (1.6-8.9); Platelet Count 562 K/mcL (140-400); Red Blood Count 3.55 M/mcL (4.19-5.50); Red Cell Distribution Width 13.5 % (11.5-14.5); Segmented Neutrophils % 65.9 %; White Blood Count 14.4 K/mcL (4.3-11.1)
[2021-09-08 02:23] LABS: Calcium 8.3 mg/dL (8.6-10.3); Magnesium 1.9 mg/dL (1.6-2.6); Potassium 3.4 mEq/L (3.5-5.1)
[2021-09-08] MEDS: Sodium Bicarbonate 75 MEQ in 0.45 % Sodium Chloride 1,000 ML IVC SCH (05:13)
[2021-09-08] MEDS: *HR* Heparin 5,000 UNIT/ML VIAL SQ SCH ×3 (05:14→21:32)
[2021-09-08] MEDS: Piperacillin/Tazobactam 3.375 GM in 0.9 % Sodium Chloride Mini Bag 100 ML IVPB SCH ×3 (05:14→21:49)
[2021-09-08] MEDS: Insulin LISPRO 300 UNITS/3 ML VIAL SUBQ SCH ×4 (07:46→21:58)
[2021-09-08] MEDS: Vitamin B Complex/Vit C/Vit E 1 EACH TABLET PO SCH (08:01)
[2021-09-08] MEDS: Isosorbide MONOnitrate (24 HR) 30 MG TAB.ER.24H PO SCH (08:01)
[2021-09-08] MEDS: hydrALAZINE 10 MG TABLET PO SCH ×3 (08:01→21:32)
[2021-09-08] MEDS: Aspirin Enteric Coated 81 MG Tablet PO SCH (08:01)
[2021-09-08] MEDS: carvediloL 6.25 MG TABLET PO SCH ×2 (08:01→16:14)
[2021-09-08] MEDS: DAPTOmycin 750 MG in 0.9 % Sodium Chloride 100 ML IVPB SCH (16:16)
[2021-09-08] MEDS: Melatonin 3 MG TABLET PO PRN (21:33)
[2021-09-08] MEDS: Insulin DETEMIR 100 UNIT/ML X5UNITS SUBQ SCH (21:45)
[2021-09-09 02:04] LABS: Basophils # 0.1 K/mcL (0.0-0.2); Basophils % 0.6 %; Eosinophils # 0.6 K/mcL (0.0-0.6); Eosinophils % 4.7 %; Hematocrit 28.2 % (37.5-50.1); Hemoglobin 9.3 g/dL (12.9-16.9); Immature Granulocytes % 0.4 % (0-4); Lymphocytes # 3.3 K/mcL (0.6-4.6); Lymphocytes % 24.7 %; Mean Corpuscular Hemoglobin 27.6 pg (28.0-33.3); Mean Corpuscular Volume 83.7 fL (83.0-100.0); Mean Platelet Volume 9.1 fL (9.4-12.4); Monocytes % 7.4 %; Neutrophils # 8.3 K/mcL (1.6-8.9); Platelet Count 622 K/mcL (140-400); Red Blood Count 3.37 M/mcL (4.19-5.50); Red Cell Distribution Width 13.6 % (11.5-14.5); Segmented Neutrophils % 62.2 %; White Blood Count 13.4 K/mcL (4.3-11.1)
[2021-09-09 02:24] LABS: Calcium 8.6 mg/dL (8.6-10.3); Magnesium 2.1 mg/dL (1.6-2.6); Potassium 4.1 mEq/L (3.5-5.1)
[2021-09-09] MEDS: *HR* Heparin 5,000 UNIT/ML VIAL SQ SCH ×3 (06:12→21:40)
[2021-09-09] MEDS: Piperacillin/Tazobactam 3.375 GM in 0.9 % Sodium Chloride Mini Bag 100 ML IVPB SCH (06:16)
[2021-09-09] MEDS: Vitamin B Complex/Vit C/Vit E 1 EACH TABLET PO SCH (08:16)
[2021-09-09] MEDS: carvediloL 6.25 MG TABLET PO SCH ×2 (08:16→17:31)
[2021-09-09] MEDS: Aspirin Enteric Coated 81 MG Tablet PO SCH (08:20)
[2021-09-09] MEDS: Insulin LISPRO 300 UNITS/3 ML VIAL SUBQ SCH ×4 (08:20→19:42)
[2021-09-09] MEDS ORDERED: NIFEdipine XL (24 HR) 60 MG TAB.ER.24 PO SCH (09:00)
[2021-09-09] MEDS ORDERED: Isosorbide MONOnitrate (24 HR) 60 MG TAB.ER.24H PO SCH (09:00)
[2021-09-09] MEDS ORDERED: 0.9 % Sodium Chloride 1,000 ML IVC SCH (10:15)
[2021-09-09] MEDS ORDERED: Famotidine 20 MG/2 ML VIAL IVP ONE (14:28)
[2021-09-09] MEDS ORDERED: Acetaminophen IV 1,000 MG/100 ML BAG IVPB ONE (14:28)
[2021-09-09] MEDS ORDERED: CeFAZolin Syr 2,000MG/20 ML 2,000 MG/20 ML SYRINGE IVPB ONE (14:38)
[2021-09-09] MEDS ORDERED: Lidocaine -MPF 2% 2 ML VIAL ONE (14:55)
[2021-09-09] MEDS ORDERED: *HR* FentaNYL (PF) 100 MCG/2 ML VIAL ONE (14:56)
[2021-09-09] MEDS ORDERED: *HR* Midazolam HCl 2 MG/2 ML VIAL ONE (14:56)
[2021-09-09] MEDS ORDERED: EPHEDrine 50 MG/ML VIAL ONE (15:44)
[2021-09-09] MEDS ORDERED: *HR* OxyCODONE Immed Rel 5 MG TABLET PO PRN (16:33)
[2021-09-09] MEDS ORDERED: Naloxone 0.4 MG/ML INJ IVP PRN (16:33)
[2021-09-09] MEDS ORDERED: *HR* Promethazine 25 MG/ML VIAL IM PRN (16:33)
[2021-09-09] MEDS ORDERED: Acetaminophen 325 MG TABLET PO PRN (16:33)
[2021-09-09] MEDS ORDERED: Dextrose 4 GM Chewable Tablets PO PRN ×2 (16:33)
[2021-09-09] MEDS ORDERED: D5% in Water 1,000 ML IVC PRN (16:33)
[2021-09-09] MEDS ORDERED: polyethylene glycoL 3350 17 GM POWD.PACK PO PRN (16:33)
[2021-09-09] MEDS ORDERED: *HR* Dextrose 50 % in Water (Syg) 50 ML SYRINGE IVP PRN (16:33)
[2021-09-09] MEDS ORDERED: *HR* HYDROcodone/Acet 5/325 mg TABLET PO PRN (16:33)
[2021-09-09] MEDS: 0.9 % Sodium Chloride 1,000 ML IVC SCH (17:31)
[2021-09-09] MEDS: Insulin DETEMIR 100 UNIT/ML X5UNITS SUBQ SCH (21:40)
[2021-09-10] MEDS: Melatonin 3 MG TABLET PO PRN (00:48)
[2021-09-10] MEDS: *HR* Heparin 5,000 UNIT/ML VIAL SQ SCH ×3 (05:59→20:50)
[2021-09-10 06:02] LABS: Basophils # 0.1 K/mcL (0.0-0.2); Basophils % 0.6 %; Eosinophils # 0.6 K/mcL (0.0-0.6); Eosinophils % 5.7 %; Hematocrit 29.4 % (37.5-50.1); Hemoglobin 9.2 g/dL (12.9-16.9); Immature Granulocytes % 0.5 % (0-4); Lymphocytes # 2.9 K/mcL (0.6-4.6); Lymphocytes % 26.6 %; Mean Corpuscular HGB Conc 31.3 g/dL (31.6-35.5); Mean Corpuscular Hemoglobin 26.4 pg (28.0-33.3); Mean Corpuscular Volume 84.5 fL (83.0-100.0); Mean Platelet Volume 8.9 fL (9.4-12.4); Monocytes # 0.8 K/mcL (0.0-1.3); Monocytes % 7.7 %; Neutrophils # 6.4 K/mcL (1.6-8.9); Platelet Count 630 K/mcL (140-400); Red Blood Count 3.48 M/mcL (4.19-5.50); Red Cell Distribution Width 13.7 % (11.5-14.5); Segmented Neutrophils % 58.9 %; White Blood Count 10.8 K/mcL (4.3-11.1)
[2021-09-10 06:12] LABS: Calcium 8.5 mg/dL (8.6-10.3); Magnesium 2.2 mg/dL (1.6-2.6)
[2021-09-10] MEDS: Insulin LISPRO 300 UNITS/3 ML VIAL SUBQ SCH ×4 (08:00→20:51)
[2021-09-10] MEDS: Aspirin Enteric Coated 81 MG Tablet PO SCH (08:16)
[2021-09-10] MEDS: NIFEdipine XL (24 HR) 30 MG TAB.ER.24 PO SCH (08:16)
[2021-09-10] MEDS: Vitamin B Complex/Vit C/Vit E 1 EACH TABLET PO SCH (08:16)
[2021-09-10] MEDS: Isosorbide MONOnitrate (24 HR) 60 MG TAB.ER.24H PO SCH (08:17)
[2021-09-10] MEDS: carvediloL 6.25 MG TABLET PO SCH ×2 (08:17→16:24)
[2021-09-10] MEDS: 0.9 % Sodium Chloride 1,000 ML IVC SCH ×2 (08:17→20:50)
[2021-09-10] MEDS ORDERED: NIFEdipine XL (24 HR) 30 MG TAB.ER.24 PO SCH (09:00)
[2021-09-10] MEDS ORDERED: DAPTOmycin 750 MG in 0.9 % Sodium Chloride 100 ML IVPB SCH (16:00)
[2021-09-10] MEDS: Insulin DETEMIR 100 UNIT/ML X5UNITS SUBQ SCH (20:51)
[2021-09-11] MEDS: Melatonin 3 MG TABLET PO PRN ×2 (00:13→23:25)
[2021-09-11 05:04] LABS: Basophils # 0.1 K/mcL (0.0-0.2); Basophils % 0.6 %; Eosinophils # 0.5 K/mcL (0.0-0.6); Eosinophils % 4.6 %; Hematocrit 30.4 % (37.5-50.1); Hemoglobin 9.9 g/dL (12.9-16.9); Immature Granulocytes % 0.4 % (0-4); Lymphocytes # 3.4 K/mcL (0.6-4.6); Lymphocytes % 30.3 %; Mean Corpuscular HGB Conc 32.6 g/dL (31.6-35.5); Mean Corpuscular Hemoglobin 27.7 pg (28.0-33.3); Mean Corpuscular Volume 84.9 fL (83.0-100.0); Mean Platelet Volume 8.8 fL (9.4-12.4); Monocytes # 0.9 K/mcL (0.0-1.3); Monocytes % 8.1 %; Neutrophils # 6.3 K/mcL (1.6-8.9); Platelet Count 656 K/mcL (140-400); Red Blood Count 3.58 M/mcL (4.19-5.50); Red Cell Distribution Width 13.6 % (11.5-14.5); White Blood Count 11.3 K/mcL (4.3-11.1)
[2021-09-11] MEDS: *HR* Heparin 5,000 UNIT/ML VIAL SQ SCH ×3 (05:09→20:49)
[2021-09-11 05:25] LABS: Calcium 8.7 mg/dL (8.6-10.3); Magnesium 2.1 mg/dL (1.6-2.6)
[2021-09-11] MEDS: Insulin LISPRO 300 UNITS/3 ML VIAL SUBQ SCH ×4 (07:24→20:48)
[2021-09-11] MEDS: NIFEdipine XL (24 HR) 30 MG TAB.ER.24 PO SCH (08:43)
[2021-09-11] MEDS: Isosorbide MONOnitrate (24 HR) 60 MG TAB.ER.24H PO SCH (08:43)
[2021-09-11] MEDS: carvediloL 6.25 MG TABLET PO SCH ×2 (08:44→16:33)
[2021-09-11] MEDS: Aspirin Enteric Coated 81 MG Tablet PO SCH (08:44)
[2021-09-11] MEDS: Vitamin B Complex/Vit C/Vit E 1 EACH TABLET PO SCH (08:44)
[2021-09-11] MEDS: 0.9 % Sodium Chloride 1,000 ML IVC SCH ×2 (10:26→23:26)
[2021-09-11] MEDS: Ondansetron 4 MG/2 ML VIAL IVP PRN (12:40)
[2021-09-11] MEDS: Insulin DETEMIR 100 UNIT/ML X5UNITS SUBQ SCH (20:50)
[2021-09-12 02:49] LABS: Hematocrit 25.9 % (37.5-50.1); Hemoglobin 8.4 g/dL (12.9-16.9); Mean Corpuscular HGB Conc 32.4 g/dL (31.6-35.5); Mean Corpuscular Hemoglobin 27.9 pg (28.0-33.3); Mean Platelet Volume 9.1 fL (9.4-12.4); Platelet Count 569 K/mcL (140-400); Red Blood Count 3.01 M/mcL (4.19-5.50); Red Cell Distribution Width 13.9 % (11.5-14.5); White Blood Count 11.9 K/mcL (4.3-11.1)
[2021-09-12 02:59] LABS: Calcium 8.2 mg/dL (8.6-10.3); Potassium 3.8 mEq/L (3.5-5.1)
[2021-09-12] MEDS: *HR* Heparin 5,000 UNIT/ML VIAL SQ SCH ×3 (05:16→21:11)
[2021-09-12] MEDS: Insulin LISPRO 300 UNITS/3 ML VIAL SUBQ SCH ×4 (07:20→21:18)
[2021-09-12] MEDS: Vitamin B Complex/Vit C/Vit E 1 EACH TABLET PO SCH (07:27)
[2021-09-12] MEDS: carvediloL 6.25 MG TABLET PO SCH ×2 (07:27→16:33)
[2021-09-12] MEDS: NIFEdipine XL (24 HR) 30 MG TAB.ER.24 PO SCH (07:28)
[2021-09-12] MEDS: Isosorbide MONOnitrate (24 HR) 60 MG TAB.ER.24H PO SCH (07:28)
[2021-09-12] MEDS: Aspirin Enteric Coated 81 MG Tablet PO SCH (07:28)
[2021-09-12] MEDS: Ondansetron 4 MG/2 ML VIAL IVP PRN (09:29)
[2021-09-12] MEDS: 0.9 % Sodium Chloride 1,000 ML IVC SCH ×2 (13:16→23:46)
[2021-09-12] MEDS: CeFAZolin 2,000 MG/120 ML BAG IVPB SCH (16:34)
[2021-09-12] MEDS: Melatonin 3 MG TABLET PO PRN (21:13)
[2021-09-12] MEDS: Insulin DETEMIR 100 UNIT/ML X5UNITS SUBQ SCH (21:19)
[2021-09-13 04:30] LABS: Hematocrit 25.3 % (37.5-50.1); Hemoglobin 7.9 g/dL (12.9-16.9); Mean Corpuscular HGB Conc 31.2 g/dL (31.6-35.5); Mean Corpuscular Hemoglobin 26.7 pg (28.0-33.3); Mean Corpuscular Volume 85.5 fL (83.0-100.0); Mean Platelet Volume 8.9 fL (9.4-12.4); Platelet Count 521 K/mcL (140-400); Red Blood Count 2.96 M/mcL (4.19-5.50); Red Cell Distribution Width 14.1 % (11.5-14.5); White Blood Count 12.6 K/mcL (4.3-11.1)
[2021-09-13 04:51] LABS: Calcium 8.4 mg/dL (8.6-10.3); Potassium 4.4 mEq/L (3.5-5.1)
[2021-09-13] MEDS: CeFAZolin 2,000 MG/120 ML BAG IVPB SCH ×2 (06:28→18:02)
[2021-09-13] MEDS: *HR* Heparin 5,000 UNIT/ML VIAL SQ SCH ×3 (06:28→21:59)
[2021-09-13] MEDS: Insulin LISPRO 300 UNITS/3 ML VIAL SUBQ SCH ×4 (07:22→22:00)
[2021-09-13] MEDS: Vitamin B Complex/Vit C/Vit E 1 EACH TABLET PO SCH (08:41)
[2021-09-13] MEDS: Aspirin Enteric Coated 81 MG Tablet PO SCH (08:42)
[2021-09-13] MEDS: carvediloL 6.25 MG TABLET PO SCH ×2 (08:42→17:41)
[2021-09-13] MEDS: Isosorbide MONOnitrate (24 HR) 60 MG TAB.ER.24H PO SCH (08:42)
[2021-09-13] MEDS: NIFEdipine XL (24 HR) 60 MG TAB.ER.24 PO SCH (08:42)
[2021-09-13] MEDS: 0.9 % Sodium Chloride 1,000 ML IVC SCH (18:38)
[2021-09-13] MEDS ORDERED: Insulin DETEMIR 100 UNIT/ML X5UNITS SUBQ SCH (21:00)
[2021-09-13] MEDS: Melatonin 3 MG TABLET PO PRN (22:07)
[2021-09-14] MEDS: *HR* Heparin 5,000 UNIT/ML VIAL SQ SCH ×2 (06:14→13:20)
[2021-09-14] MEDS: CeFAZolin 2,000 MG/120 ML BAG IVPB SCH ×2 (06:15→18:02)
[2021-09-14] MEDS ORDERED: *HR* FentaNYL (PF) 100 MCG/2 ML VIAL ONE (07:22)
[2021-09-14] MEDS ORDERED: *HR* Propofol 200 MG/20 ML VIAL IVP ONE (07:22)
[2021-09-14] MEDS ORDERED: *HR* Midazolam HCl 2 MG/2 ML VIAL ONE (07:22)
[2021-09-14] MEDS: carvediloL 6.25 MG TABLET PO SCH ×2 (07:38→18:01)
[2021-09-14] MEDS: Isosorbide MONOnitrate (24 HR) 60 MG TAB.ER.24H PO SCH (07:38)
[2021-09-14] MEDS: NIFEdipine XL (24 HR) 60 MG TAB.ER.24 PO SCH (07:38)
[2021-09-14] MEDS: Aspirin Enteric Coated 81 MG Tablet PO SCH (07:39)
[2021-09-14] MEDS: Insulin LISPRO 300 UNITS/3 ML VIAL SUBQ SCH ×4 (07:39→22:15)
[2021-09-14] MEDS: Vitamin B Complex/Vit C/Vit E 1 EACH TABLET PO SCH (07:39)
[2021-09-14 07:41] LABS: Hematocrit 27.4 % (37.5-50.1); Hemoglobin 8.8 g/dL (12.9-16.9); Mean Corpuscular HGB Conc 32.1 g/dL (31.6-35.5); Mean Corpuscular Hemoglobin 27.4 pg (28.0-33.3); Mean Corpuscular Volume 85.4 fL (83.0-100.0); Mean Platelet Volume 9.2 fL (9.4-12.4); Platelet Count 592 K/mcL (140-400); Red Blood Count 3.21 M/mcL (4.19-5.50); Red Cell Distribution Width 14.6 % (11.5-14.5); White Blood Count 11.9 K/mcL (4.3-11.1)
[2021-09-14] MEDS ORDERED: Vancomycin 1,000 MG VIAL ONE (07:44)
[2021-09-14 08:00] LABS: Calcium 8.7 mg/dL (8.6-10.3); Potassium 4.4 mEq/L (3.5-5.1)
[2021-09-14] MEDS ORDERED: Acetaminophen IV 1,000 MG/100 ML BAG IVPB ONE ×2 (08:04→08:14)
[2021-09-14] MEDS ORDERED: *HR* Labetalol 20 MG/4 ML SYRINGE IVP PRN (08:14)
[2021-09-14] MEDS ORDERED: Promethazine Syrup 6.25 MG/5 ML PO PRN (08:14)
[2021-09-14] MEDS ORDERED: Famotidine 20 MG/2 ML VIAL IVP ONE (08:14)
[2021-09-14] MEDS ORDERED: *HR* HYDROmorphone 2 MG TABLET PO PRN (08:14)
[2021-09-14] MEDS ORDERED: *HR* HYDROmorphone (PF) 1 MG/ML SYRINGE IVP PRN (08:14)
[2021-09-14] MEDS ORDERED: *HR* OxyCODONE Immed Rel 5 MG TABLET PO PRN (08:14)
[2021-09-14] MEDS ORDERED: EPHEDrine 50 MG/ML VIAL ONE (08:41)
[2021-09-14] MEDS ORDERED: Ondansetron 4 MG/2 ML VIAL ONE (08:54)
[2021-09-14] MEDS ORDERED: Ketamine HCL *QUVA* 50mg (1mL) SYRINGE ONE (09:32)
[2021-09-14] MEDS ORDERED: *HR* HYDROMORPHONE 2 MG/ML VIAL ONE (09:33)
[2021-09-14] MEDS ORDERED: polyethylene glycoL 3350 17 GM POWD.PACK PO PRN (13:36)
[2021-09-14] MEDS ORDERED: *HR* Dextrose 50 % in Water (Syg) 50 ML SYRINGE IVP PRN (13:36)
[2021-09-14] MEDS ORDERED: Dextrose 4 GM Chewable Tablets PO PRN ×2 (13:36)
[2021-09-14] MEDS ORDERED: *HR* OxyCODONE/APAP 10/325 TABLET PO PRN (13:36)
[2021-09-14] MEDS ORDERED: Ondansetron 4 MG/2 ML VIAL IVP PRN (13:36)
[2021-09-14] MEDS ORDERED: D5% in Water 1,000 ML IVC PRN (13:36)
[2021-09-14] MEDS ORDERED: Acetaminophen 325 MG TABLET PO PRN (13:36)
[2021-09-14] MEDS ORDERED: Naloxone 0.4 MG/ML INJ IVP PRN ×2 (13:36)
[2021-09-14] MEDS ORDERED: *HR* Promethazine 25 MG/ML VIAL IM PRN (13:36)
[2021-09-14] MEDS: 0.9 % Sodium Chloride 1,000 ML IVC SCH ×2 (13:50→14:14)
[2021-09-14] MEDS: *HR* OxyCODONE/APAP 5/325 TABLET PO PRN (15:55)
[2021-09-14] MEDS: Gabapentin 100 MG CAPSULE PO SCH (18:15)
[2021-09-14] MEDS: Insulin DETEMIR 100 UNIT/ML X5UNITS SUBQ SCH (22:16)
[2021-09-14] MEDS: *HR* OxyCODONE Immed Rel 5 MG TABLET PO PRN (22:17)
[2021-09-14] MEDS: Melatonin 3 MG TABLET PO PRN (22:17)
[2021-09-15 03:08] LABS: Basophils % 0.2 %; Eosinophils # 0.1 K/mcL (0.0-0.6); Eosinophils % 0.7 %; Hematocrit 22.2 % (37.5-50.1); Immature Granulocytes % 0.8 % (0-4); Lymphocytes # 2.9 K/mcL (0.6-4.6); Lymphocytes % 17.1 %; Mean Corpuscular HGB Conc 30.6 g/dL (31.6-35.5); Mean Corpuscular Hemoglobin 26.6 pg (28.0-33.3); Mean Corpuscular Volume 86.7 fL (83.0-100.0); Mean Platelet Volume 9.5 fL (9.4-12.4); Monocytes # 1.1 K/mcL (0.0-1.3); Monocytes % 6.6 %; Neutrophils # 12.6 K/mcL (1.6-8.9); Platelet Count 479 K/mcL (140-400); Red Blood Count 2.56 M/mcL (4.19-5.50); Segmented Neutrophils % 74.6 %; White Blood Count 16.9 K/mcL (4.3-11.1)
[2021-09-15 03:15] LABS: Calcium 8.2 mg/dL (8.6-10.3); Potassium 4.7 mEq/L (3.5-5.1)
[2021-09-15] MEDS: 0.9 % Sodium Chloride 1,000 ML IVC SCH ×2 (03:16→17:18)
[2021-09-15 03:20] LABS: Hemoglobin 6.8 g/dL (12.9-16.9)
[2021-09-15] MEDS: CeFAZolin 2,000 MG/120 ML BAG IVPB SCH (07:02)
[2021-09-15] MEDS ORDERED: 0.9 % Sodium Chloride 250 ML ONE (09:27)
[2021-09-15] MEDS: Gabapentin 100 MG CAPSULE PO SCH (09:52)
[2021-09-15] MEDS: Vitamin B Complex/Vit C/Vit E 1 EACH TABLET PO SCH (09:52)
[2021-09-15] MEDS: Insulin LISPRO 300 UNITS/3 ML VIAL SUBQ SCH ×4 (09:52→20:20)
[2021-09-15] MEDS: Aspirin Enteric Coated 81 MG Tablet PO SCH (09:52)
[2021-09-15] MEDS: carvediloL 6.25 MG TABLET PO SCH ×2 (09:52→17:18)
[2021-09-15] MEDS: NIFEdipine XL (24 HR) 60 MG TAB.ER.24 PO SCH (09:52)
[2021-09-15] MEDS: Isosorbide MONOnitrate (24 HR) 60 MG TAB.ER.24H PO SCH (09:52)
[2021-09-15] MEDS: *HR* OxyCODONE/APAP 5/325 TABLET PO PRN ×2 (10:14→20:20)
[2021-09-15] MEDS: *HR* OxyCODONE/APAP 7.5/325 TABLET PO PRN (13:55)
[2021-09-15] MEDS: Insulin DETEMIR 100 UNIT/ML X5UNITS SUBQ SCH (20:18)
[2021-09-15] MEDS: Melatonin 3 MG TABLET PO PRN (20:20)
[2021-09-15] MEDS: *HR* OxyCODONE Immed Rel 5 MG TABLET PO PRN (22:57)
[2021-09-16 01:35] LABS: Hematocrit 23.6 % (37.5-50.1); Hemoglobin 7.7 g/dL (12.9-16.9); Mean Corpuscular HGB Conc 32.6 g/dL (31.6-35.5); Mean Corpuscular Hemoglobin 28.1 pg (28.0-33.3); Mean Corpuscular Volume 86.1 fL (83.0-100.0); Mean Platelet Volume 9.2 fL (9.4-12.4); Platelet Count 481 K/mcL (140-400); Red Blood Count 2.74 M/mcL (4.19-5.50); White Blood Count 15.1 K/mcL (4.3-11.1)
[2021-09-16 01:59] LABS: Calcium 8.4 mg/dL (8.6-10.3); Potassium 4.6 mEq/L (3.5-5.1)
[2021-09-16] MEDS: *HR* OxyCODONE/APAP 7.5/325 TABLET PO PRN ×2 (06:20→21:28)
[2021-09-16] MEDS: 0.9 % Sodium Chloride 1,000 ML IVC SCH ×2 (06:20→20:54)
[2021-09-16] MEDS: Insulin LISPRO 300 UNITS/3 ML VIAL SUBQ SCH ×4 (09:04→20:53)
[2021-09-16] MEDS: Vitamin B Complex/Vit C/Vit E 1 EACH TABLET PO SCH (09:59)
[2021-09-16] MEDS: Isosorbide MONOnitrate (24 HR) 60 MG TAB.ER.24H PO SCH (09:59)
[2021-09-16] MEDS: NIFEdipine XL (24 HR) 60 MG TAB.ER.24 PO SCH (09:59)
[2021-09-16] MEDS: Aspirin Enteric Coated 81 MG Tablet PO SCH (09:59)
[2021-09-16] MEDS: Gabapentin 100 MG CAPSULE PO SCH (09:59)
[2021-09-16] MEDS: carvediloL 6.25 MG TABLET PO SCH ×2 (10:03→18:09)
[2021-09-16] MEDS: *HR* OxyCODONE/APAP 5/325 TABLET PO PRN (12:50)
[2021-09-16] MEDS ORDERED: Acetaminophen 325 MG TABLET PO PRN (14:28)
[2021-09-16] MEDS: Insulin DETEMIR 100 UNIT/ML X5UNITS SUBQ SCH (20:52)
[2021-09-17] MEDS: Insulin LISPRO 300 UNITS/3 ML VIAL SUBQ SCH ×4 (08:37→22:02)
[2021-09-17] MEDS: carvediloL 6.25 MG TABLET PO SCH ×2 (08:45→16:18)
[2021-09-17] MEDS: Gabapentin 100 MG CAPSULE PO SCH (08:45)
[2021-09-17] MEDS: Aspirin Enteric Coated 81 MG Tablet PO SCH (08:45)
[2021-09-17] MEDS: Isosorbide MONOnitrate (24 HR) 60 MG TAB.ER.24H PO SCH (08:45)
[2021-09-17] MEDS: Vitamin B Complex/Vit C/Vit E 1 EACH TABLET PO SCH (08:45)
[2021-09-17] MEDS: NIFEdipine XL (24 HR) 60 MG TAB.ER.24 PO SCH (08:46)
[2021-09-17] MEDS: *HR* OxyCODONE/APAP 7.5/325 TABLET PO PRN ×3 (08:48→23:09)
[2021-09-17] MEDS: 0.9 % Sodium Chloride 1,000 ML IVC SCH ×2 (08:54→22:03)
[2021-09-17 10:21] LABS: Hematocrit 25.8 % (37.5-50.1); Hemoglobin 8.3 g/dL (12.9-16.9); Mean Corpuscular HGB Conc 32.2 g/dL (31.6-35.5); Mean Corpuscular Hemoglobin 27.9 pg (28.0-33.3); Mean Corpuscular Volume 86.6 fL (83.0-100.0); Mean Platelet Volume 9.5 fL (9.4-12.4); Platelet Count 532 K/mcL (140-400); Red Blood Count 2.98 M/mcL (4.19-5.50); White Blood Count 13.5 K/mcL (4.3-11.1)
[2021-09-17 10:41] LABS: Calcium 8.7 mg/dL (8.6-10.3); Potassium 4.6 mEq/L (3.5-5.1)
[2021-09-17] MEDS: *HR* OxyCODONE/APAP 5/325 TABLET PO PRN (11:17)
[2021-09-17] MEDS: Insulin DETEMIR 100 UNIT/ML X5UNITS SUBQ SCH (22:02)
[2021-09-18 09:46] LABS: Basophils # 0.1 K/mcL (0.0-0.2); Basophils % 0.5 %; Eosinophils # 0.6 K/mcL (0.0-0.6); Eosinophils % 5.1 %; Hematocrit 25.1 % (37.5-50.1); Hemoglobin 8.1 g/dL (12.9-16.9); Immature Granulocytes % 0.6 % (0-4); Lymphocytes # 2.4 K/mcL (0.6-4.6); Lymphocytes % 19.6 %; Mean Corpuscular HGB Conc 32.3 g/dL (31.6-35.5); Mean Corpuscular Hemoglobin 28.1 pg (28.0-33.3); Mean Corpuscular Volume 87.2 fL (83.0-100.0); Mean Platelet Volume 9.3 fL (9.4-12.4); Monocytes # 1.2 K/mcL (0.0-1.3); Monocytes % 9.8 %; Neutrophils # 7.7 K/mcL (1.6-8.9); Platelet Count 523 K/mcL (140-400); Red Blood Count 2.88 M/mcL (4.19-5.50); Red Cell Distribution Width 15.1 % (11.5-14.5); Segmented Neutrophils % 64.4 %
[2021-09-18] MEDS: Insulin LISPRO 300 UNITS/3 ML VIAL SUBQ SCH ×4 (09:49→21:53)
[2021-09-18] MEDS: Vitamin B Complex/Vit C/Vit E 1 EACH TABLET PO SCH (09:49)
[2021-09-18] MEDS: NIFEdipine XL (24 HR) 60 MG TAB.ER.24 PO SCH (09:49)
[2021-09-18] MEDS: Isosorbide MONOnitrate (24 HR) 60 MG TAB.ER.24H PO SCH (09:50)
[2021-09-18] MEDS: Gabapentin 100 MG CAPSULE PO SCH (09:50)
[2021-09-18] MEDS: Aspirin Enteric Coated 81 MG Tablet PO SCH (09:50)
[2021-09-18] MEDS: carvediloL 6.25 MG TABLET PO SCH ×2 (09:57→16:53)
[2021-09-18 10:23] LABS: Calcium 8.8 mg/dL (8.6-10.3); Potassium 4.6 mEq/L (3.5-5.1)
[2021-09-18] MEDS: *HR* OxyCODONE Immed Rel 5 MG TABLET PO PRN ×2 (10:51→18:36)
[2021-09-18] MEDS: 0.9 % Sodium Chloride 1,000 ML IVC SCH (10:59)
[2021-09-18] MEDS: *HR* OxyCODONE/APAP 7.5/325 TABLET PO PRN (21:51)
[2021-09-18] MEDS: Insulin DETEMIR 100 UNIT/ML X5UNITS SUBQ SCH (22:53)
[2021-09-19] MEDS: 0.9 % Sodium Chloride 1,000 ML IVC SCH (01:22)
[2021-09-19 04:11] LABS: Basophils # 0.1 K/mcL (0.0-0.2); Basophils % 0.5 %; Eosinophils # 0.6 K/mcL (0.0-0.6); Eosinophils % 4.9 %; Hematocrit 22.6 % (37.5-50.1); Hemoglobin 7.1 g/dL (12.9-16.9); Immature Granulocytes % 0.5 % (0-4); Lymphocytes # 2.6 K/mcL (0.6-4.6); Lymphocytes % 22.4 %; Mean Corpuscular HGB Conc 31.4 g/dL (31.6-35.5); Mean Corpuscular Hemoglobin 27.8 pg (28.0-33.3); Mean Corpuscular Volume 88.6 fL (83.0-100.0); Mean Platelet Volume 9.5 fL (9.4-12.4); Monocytes # 1.1 K/mcL (0.0-1.3); Monocytes % 9.3 %; Neutrophils # 7.1 K/mcL (1.6-8.9); Platelet Count 499 K/mcL (140-400); Red Blood Count 2.55 M/mcL (4.19-5.50); Red Cell Distribution Width 15.1 % (11.5-14.5); Segmented Neutrophils % 62.4 %; White Blood Count 11.4 K/mcL (4.3-11.1)
[2021-09-19] MEDS: *HR* OxyCODONE/APAP 7.5/325 TABLET PO PRN (04:45)
[2021-09-19 05:49] LABS: Calcium 8.2 mg/dL (8.6-10.3); Potassium 4.5 mEq/L (3.5-5.1)
[2021-09-19] MEDS: Gabapentin 100 MG CAPSULE PO SCH (10:16)
[2021-09-19] MEDS: Isosorbide MONOnitrate (24 HR) 60 MG TAB.ER.24H PO SCH (10:17)
[2021-09-19] MEDS: NIFEdipine XL (24 HR) 60 MG TAB.ER.24 PO SCH (10:17)
[2021-09-19] MEDS: Vitamin B Complex/Vit C/Vit E 1 EACH TABLET PO SCH (10:17)
[2021-09-19] MEDS: Aspirin Enteric Coated 81 MG Tablet PO SCH (10:17)
[2021-09-19] MEDS: carvediloL 6.25 MG TABLET PO SCH (10:21)
[2021-09-19] MEDS: *HR* OxyCODONE Immed Rel 5 MG TABLET PO PRN (10:21)
[2021-09-19] MEDS: Insulin LISPRO 300 UNITS/3 ML VIAL SUBQ SCH ×2 (10:23→11:49)
[2021-09-19 10:56] VITALS: BP 152/81; PULSE 84; TEMP 97.7; O2SAT 93
[2021-09-19 11:13] LABS: Influenza A PCR Negative (Negative); Influenza B PCR Negative (Negative); Resp. Syncytial Virus PCR Negative (Negative); SARS-CoV-2 by PCR (In House) Negative (Negative)
== END 2021-09-19 14:37 | DRG 710 ==
LOC: 2ANU 16:09 → EMEROOARM 16:09 → SUATTDRO 20:25 → 2ANU 20:50 → SUATTDRO 09-02 12:54
PROVIDERS: ADMIT Internal Medicine; ATTEND Family Medicine

== ENCOUNTER 2021-09-21 00:06 | Inpatient (IN) ==
[2021-09-21] MEDS ORDERED: Ondansetron 4 MG/2 ML VIAL IVP PRN (04:03)
[2021-09-21] MEDS ORDERED: Acetaminophen 325 MG TABLET PO PRN (04:03)
[2021-09-21] MEDS ORDERED: Naloxone 0.4 MG/ML INJ IVP PRN (04:03)
[2021-09-21] MEDS ORDERED: 0.9 % Sodium Chloride 1,000 ML IVC SCH (04:15)
[2021-09-21] MEDS ORDERED: Dextrose 4 GM Chewable Tablets PO PRN ×2 (04:48)
[2021-09-21] MEDS ORDERED: D5% in Water 1,000 ML IVC PRN (04:48)
[2021-09-21] MEDS ORDERED: *HR* Dextrose 50 % in Water (Syg) 50 ML SYRINGE IVP PRN (04:48)
[2021-09-21 05:47] LABS: Basophils % 0.1 %; Hematocrit 25.2 % (37.5-50.1); Immature Granulocytes % 0.5 % (0-4); Lymphocytes # 0.8 K/mcL (0.6-4.6); Lymphocytes % 4.7 %; Mean Corpuscular HGB Conc 31.7 g/dL (31.6-35.5); Mean Corpuscular Hemoglobin 27.8 pg (28.0-33.3); Mean Corpuscular Volume 87.5 fL (83.0-100.0); Mean Platelet Volume 9.9 fL (9.4-12.4); Monocytes # 0.1 K/mcL (0.0-1.3); Monocytes % 0.8 %; Neutrophils # 14.9 K/mcL (1.6-8.9); Platelet Count 561 K/mcL (140-400); Red Blood Count 2.88 M/mcL (4.19-5.50); Red Cell Distribution Width 15.2 % (11.5-14.5); Segmented Neutrophils % 93.9 %; White Blood Count 15.8 K/mcL (4.3-11.1)
[2021-09-21 05:55] LABS: INR 1.3; Prothrombin Time 14.5 Seconds (9.4-12.1)
[2021-09-21 05:58] LABS: Activated Partial Thrombo Time 41.7 Seconds (26.0-36.0)
[2021-09-21 06:25] LABS: Albumin 2.9 g/dL (3.5-5.7); Albumin/Globulin Ratio 0.9 (1.1-2.2); Bilirubin,Total 0.3 mg/dL (0.3-1.0); Calcium 9.1 mg/dL (8.6-10.3); Chol/HDL Ratio 3.9 (0-4.9); Globulin 3.2 g/dL (2.4-3.5); Potassium 4.9 mEq/L (3.5-5.1); Total Protein 6.1 g/dL (6.4-8.9)
[2021-09-21] MEDS ORDERED: Perflutren Lipid Microsphere 1.3 ML in 0.9 % Sodium Chloride 8.7 ML IVP PRN (06:25)
[2021-09-21] MEDS: Insulin LISPRO 300 UNITS/3 ML VIAL SUBQ SCH ×3 (06:34→16:34)
[2021-09-21 06:36] LABS: Adenovirus Not Detected (Not Detect); Bordetella Pertussis Not Detected (Not Detect); Chlamydophila pneumoniae Not Detected (Not Detect); Coronavirus 229E Not Detected (Not Detect); Coronavirus HKU1 Not Detected (Not Detect); Coronavirus NL63 Not Detected (Not Detect); Coronavirus OC43 Not Detected (Not Detect); Human Metapneumovirus Not Detected (Not Detect); Human Rhinovirus/Enterovirus Not Detected (Not Detect); Influenza A Subtype 2009 H1 Not Detected (Not Detect); Influenza B Not Detected (Not Detect); Mycoplasma pneumoniae Not Detected (Not Detect); Parainfluenza Virus 1 Not Detected (Not Detect); Parainfluenza Virus 2 Not Detected (Not Detect); Parainfluenza Virus 3 Not Detected (Not Detect); Parainfluenza Virus 4 Not Detected (Not Detect); Respiratory Syncytial Virus Not Detected (Not Detect); SARS-CoV-2 Not Detected (Not Detect)
[2021-09-21 07:25] LABS: Troponin I 0.92 ng/mL (< 0.04)
[2021-09-21] MEDS ORDERED: *HR* Heparin 5,000 UNIT/ML VIAL IVP ONE (09:23)
[2021-09-21] MEDS ORDERED: *HR* Heparin 5,000 UNIT/ML VIAL IVP PRN (09:23)
[2021-09-21] MEDS: Furosemide 20 MG/2 ML VIAL IVP SCH (09:25)
[2021-09-21 09:44] LABS: Amorphous Sediment,Urine Few per hpf (None-Few); Bacteria,Urine Few per hpf (None-Few); Bilirubin,Urine Negative (Negative); Blood,Urine Small (Negative); Clarity,Urine Turbid (Clear); Color,Urine Yellow (Yellow); Glucose,Urine (UA) 500 mg/dL (Normal); Granular Casts,Urine Few per lpf (None Seen); Ketones,Urine Trace mg/dL (Negative); Leukocyte Esterase,Urine Negative (Negative); Mucus,Urine Few per lpf (None-Few); Nitrite,Urine Negative (Negative); Protein,Urine >=300 mg/dL (Neg-Trace); RBC,Urine 0-3 per hpf (0-3); Specific Gravity,Urine 1.017 (1.010-1.025); Squamous Epithelial Cell,Urine Few per hpf (None-Few); Urobilinogen,Urine Normal (Normal); WBC,Urine 0-3 per hpf (0-3)
[2021-09-21 10:39] LABS: Hematocrit 24.9 % (37.5-50.1); Mean Corpuscular HGB Conc 32.1 g/dL (31.6-35.5); Mean Corpuscular Volume 87.1 fL (83.0-100.0); Mean Platelet Volume 9.6 fL (9.4-12.4); Platelet Count 528 K/mcL (140-400); Red Blood Count 2.86 M/mcL (4.19-5.50); Red Cell Distribution Width 15.4 % (11.5-14.5); White Blood Count 15.4 K/mcL (4.3-11.1)
[2021-09-21 10:48] LABS: Heparin anti-factor XA UFH 0.28 IU/mL (0.30-0.70)
[2021-09-21 10:49] LABS: INR 1.3; Prothrombin Time 14.1 Seconds (9.4-12.1)
[2021-09-21] MEDS: Heparin 25,000UNIT/250ML 1/2NS 25,000 UNIT/250 ML IV.SOLN IVC SCH (11:06)
[2021-09-21] MEDS ORDERED: *HR* Enoxaparin 120 MG/0.8 ML SYRINGE SQ SCH (11:30)
[2021-09-21] MEDS: Aspirin Enteric Coated 81 MG Tablet PO SCH (12:50)
[2021-09-21] MEDS: Ipratropium/Albuterol Neb 3 ML IH PRN (21:32)
[2021-09-21] MEDS ORDERED: Furosemide 20 MG/2 ML VIAL IVP ONE (21:47)
[2021-09-21] MEDS ORDERED: Morphine Sulfate 2 MG/ML SYRINGE IVP ONE (21:49)
[2021-09-22 00:34] LABS: Basophils # 0.1 K/mcL (0.0-0.2); Basophils % 0.3 %; Eosinophils % 0.1 %; Hematocrit 27.2 % (37.5-50.1); Hemoglobin 8.6 g/dL (12.9-16.9); Immature Granulocytes % 0.4 % (0-4); Lymphocytes # 1.4 K/mcL (0.6-4.6); Lymphocytes % 6.1 %; Mean Corpuscular HGB Conc 31.6 g/dL (31.6-35.5); Mean Corpuscular Hemoglobin 27.5 pg (28.0-33.3); Mean Corpuscular Volume 86.9 fL (83.0-100.0); Mean Platelet Volume 9.6 fL (9.4-12.4); Monocytes # 1.6 K/mcL (0.0-1.3); Monocytes % 6.9 %; Neutrophils # 20.1 K/mcL (1.6-8.9); Platelet Count 627 K/mcL (140-400); Red Blood Count 3.13 M/mcL (4.19-5.50); Red Cell Distribution Width 15.6 % (11.5-14.5); Segmented Neutrophils % 86.2 %
[2021-09-22 00:35] LABS: White Blood Count 23.3 K/mcL (4.3-11.1)
[2021-09-22 00:40] LABS: Potassium 4.5 mEq/L (3.5-5.1)
[2021-09-22] MEDS: Acetaminophen 325 MG TABLET PO PRN (01:06)
[2021-09-22] MEDS: Insulin LISPRO 300 UNITS/3 ML VIAL SUBQ SCH ×4 (01:10→19:04)
[2021-09-22] MEDS: cefTRIAXone 1,000 MG in 0.9 % Sodium Chloride 10 ML IVP SCH (01:11)
[2021-09-22] MEDS: Azithromycin 500 MG in 0.9 % Sodium Chloride 250 ML IVPB SCH (01:24)
[2021-09-22] MEDS: *HR* Heparin 5,000 UNIT/ML VIAL IVP PRN ×3 (01:56→20:42)
[2021-09-22] MEDS: Heparin 25,000UNIT/250ML 1/2NS 25,000 UNIT/250 ML IV.SOLN IVC SCH ×2 (02:18→20:39)
[2021-09-22] MEDS: Furosemide 20 MG/2 ML VIAL IVP SCH ×2 (11:25→22:00)
[2021-09-22] MEDS: Aspirin Enteric Coated 81 MG Tablet PO SCH (11:25)
[2021-09-22] MEDS: carvediloL 6.25 MG TABLET PO SCH (19:03)
[2021-09-22] MEDS ORDERED: Morphine Sulfate 2 MG/ML SYRINGE ONE (19:38)
[2021-09-22] MEDS ORDERED: Morphine Sulfate 2 MG/ML SYRINGE IVP ONE (19:41)
[2021-09-22] MEDS: Ipratropium/Albuterol Neb 3 ML IH PRN (19:59)
[2021-09-22 20:06] LABS: Basophils # 0.1 K/mcL (0.0-0.2); Basophils % 0.4 %; Eosinophils # 0.2 K/mcL (0.0-0.6); Hematocrit 26.4 % (37.5-50.1); Hemoglobin 8.4 g/dL (12.9-16.9); Immature Granulocytes % 0.4 % (0-4); Lymphocytes # 1.7 K/mcL (0.6-4.6); Lymphocytes % 9.5 %; Mean Corpuscular HGB Conc 31.8 g/dL (31.6-35.5); Mean Corpuscular Hemoglobin 27.8 pg (28.0-33.3); Mean Corpuscular Volume 87.4 fL (83.0-100.0); Mean Platelet Volume 9.6 fL (9.4-12.4); Monocytes # 1.1 K/mcL (0.0-1.3); Monocytes % 6.4 %; Neutrophils # 14.7 K/mcL (1.6-8.9); Platelet Count 580 K/mcL (140-400); Red Blood Count 3.02 M/mcL (4.19-5.50); Red Cell Distribution Width 15.6 % (11.5-14.5); Segmented Neutrophils % 82.3 %; White Blood Count 17.9 K/mcL (4.3-11.1)
[2021-09-22 20:13] LABS: VBG HCO3 20 mEq/L (21-27); VBG PCO2 32 mmHg (41-51); VBG PO2 82 mmHg (25-50)
[2021-09-22 20:18] LABS: Albumin 2.9 g/dL (3.5-5.7); Albumin/Globulin Ratio 0.8 (1.1-2.2); Bilirubin,Total 0.3 mg/dL (0.3-1.0); Calcium 8.9 mg/dL (8.6-10.3); Globulin 3.5 g/dL (2.4-3.5); Potassium 4.4 mEq/L (3.5-5.1); Total Protein 6.4 g/dL (6.4-8.9)
[2021-09-22 21:23] LABS: Troponin I 0.94 ng/mL (< 0.04)
[2021-09-22] MEDS: Isosorbide MONOnitrate (24 HR) 30 MG TAB.ER.24H PO SCH (22:00)
[2021-09-23] MEDS: cefTRIAXone 1,000 MG in 0.9 % Sodium Chloride 10 ML IVP SCH ×2 (00:24→23:48)
[2021-09-23] MEDS: Azithromycin 500 MG in 0.9 % Sodium Chloride 250 ML IVPB SCH ×2 (00:24→23:48)
[2021-09-23] MEDS: Insulin LISPRO 300 UNITS/3 ML VIAL SUBQ SCH ×4 (00:25→20:34)
[2021-09-23] MEDS: hydrALAZINE 25 MG TABLET PO SCH ×4 (00:25→23:48)
[2021-09-23 03:38] LABS: Basophils # 0.1 K/mcL (0.0-0.2); Basophils % 0.4 %; Eosinophils # 0.1 K/mcL (0.0-0.6); Eosinophils % 0.7 %; Hematocrit 21.2 % (37.5-50.1); Immature Granulocytes % 0.5 % (0-4); Lymphocytes # 1.8 K/mcL (0.6-4.6); Lymphocytes % 14.1 %; Mean Corpuscular HGB Conc 32.1 g/dL (31.6-35.5); Mean Corpuscular Hemoglobin 27.6 pg (28.0-33.3); Mean Corpuscular Volume 86.2 fL (83.0-100.0); Monocytes # 1.1 K/mcL (0.0-1.3); Monocytes % 8.2 %; Neutrophils # 9.8 K/mcL (1.6-8.9); Platelet Count 497 K/mcL (140-400); Red Blood Count 2.46 M/mcL (4.19-5.50); Red Cell Distribution Width 15.3 % (11.5-14.5); Segmented Neutrophils % 76.1 %; White Blood Count 12.8 K/mcL (4.3-11.1)
[2021-09-23 03:46] LABS: Hemoglobin 6.8 g/dL (12.9-16.9)
[2021-09-23 05:33] LABS: Ferritin 461 ng/mL (20-250); Iron < 10 mcg/dL (65-175); Transferrin 135 mg/dL (203-362)
[2021-09-23 08:30] LABS: Calcium 8.6 mg/dL (8.6-10.3); Potassium 4.1 mEq/L (3.5-5.1)
[2021-09-23] MEDS: Aspirin Enteric Coated 81 MG Tablet PO SCH (08:34)
[2021-09-23] MEDS: carvediloL 6.25 MG TABLET PO SCH ×2 (08:34→19:54)
[2021-09-23] MEDS: Isosorbide MONOnitrate (24 HR) 30 MG TAB.ER.24H PO SCH ×2 (08:34→21:49)
[2021-09-23] MEDS: Furosemide 20 MG/2 ML VIAL IVP SCH ×2 (08:37→21:49)
[2021-09-23] MEDS ORDERED: Sennosides/Docusate Sodium TABLET PO ONE (09:34)
[2021-09-23] MEDS ORDERED: 0.9 % Sodium Chloride 250 ML ONE (09:58)
[2021-09-23 14:31] LABS: Hematocrit 25.3 % (37.5-50.1); Hemoglobin 8.2 g/dL (12.9-16.9)
[2021-09-23 14:39] LABS: INR 1.4; Prothrombin Time 15.5 Seconds (9.4-12.1)
[2021-09-23] MEDS ORDERED: Furosemide 40 MG/4 ML VIAL IVP ONE (16:13)
[2021-09-23] MEDS: Iron Sucrose Complex 250 MG in 0.9 % Sodium Chloride 250 ML IVPB SCH (19:59)
[2021-09-24] MEDS: Insulin LISPRO 300 UNITS/3 ML VIAL SUBQ SCH ×4 (00:16→20:45)
[2021-09-24 06:20] LABS: Calcium 8.4 mg/dL (8.6-10.3); Potassium 4.2 mEq/L (3.5-5.1)
[2021-09-24 06:42] LABS: Basophils # 0.1 K/mcL (0.0-0.2); Basophils % 0.5 %; Eosinophils # 0.4 K/mcL (0.0-0.6); Eosinophils % 4.3 %; Hematocrit 23.2 % (37.5-50.1); Hemoglobin 7.5 g/dL (12.9-16.9); Immature Granulocytes % 0.3 % (0-4); Lymphocytes # 1.3 K/mcL (0.6-4.6); Lymphocytes % 13.5 %; Mean Corpuscular HGB Conc 32.3 g/dL (31.6-35.5); Mean Corpuscular Volume 86.6 fL (83.0-100.0); Monocytes # 0.8 K/mcL (0.0-1.3); Neutrophils # 6.8 K/mcL (1.6-8.9); Platelet Count 514 K/mcL (140-400); Red Blood Count 2.68 M/mcL (4.19-5.50); Red Cell Distribution Width 15.2 % (11.5-14.5); Segmented Neutrophils % 72.4 %; White Blood Count 9.4 K/mcL (4.3-11.1)
[2021-09-24] MEDS: hydrALAZINE 25 MG TABLET PO SCH ×2 (09:08→17:47)
[2021-09-24] MEDS: Isosorbide MONOnitrate (24 HR) 30 MG TAB.ER.24H PO SCH ×2 (09:08→20:39)
[2021-09-24] MEDS: Aspirin Enteric Coated 81 MG Tablet PO SCH (09:08)
[2021-09-24] MEDS: carvediloL 6.25 MG TABLET PO SCH ×2 (09:08→17:47)
[2021-09-24] MEDS: Furosemide 20 MG/2 ML VIAL IVP SCH ×2 (09:08→20:41)
[2021-09-24] MEDS: Iron Sucrose Complex 250 MG in 0.9 % Sodium Chloride 250 ML IVPB SCH (09:09)
[2021-09-24] MEDS ORDERED: Lidocaine -MPF 2% 2 ML VIAL ONE (11:17)
[2021-09-24] MEDS ORDERED: *HR* Propofol 200 MG/20 ML VIAL IVP ONE (11:19)
[2021-09-25] MEDS: hydrALAZINE 25 MG TABLET PO SCH ×4 (00:01→23:48)
[2021-09-25] MEDS: Azithromycin 500 MG in 0.9 % Sodium Chloride 250 ML IVPB SCH ×2 (00:02→23:49)
[2021-09-25] MEDS: cefTRIAXone 1,000 MG in 0.9 % Sodium Chloride 10 ML IVP SCH ×2 (00:02→23:51)
[2021-09-25 00:58] LABS: Basophils # 0.1 K/mcL (0.0-0.2); Basophils % 0.6 %; Eosinophils # 0.8 K/mcL (0.0-0.6); Eosinophils % 7.9 %; Hemoglobin 8.1 g/dL (12.9-16.9); Immature Granulocytes % 0.4 % (0-4); Lymphocytes # 1.9 K/mcL (0.6-4.6); Lymphocytes % 19.7 %; Mean Corpuscular HGB Conc 32.4 g/dL (31.6-35.5); Mean Corpuscular Hemoglobin 27.7 pg (28.0-33.3); Mean Corpuscular Volume 85.6 fL (83.0-100.0); Mean Platelet Volume 9.7 fL (9.4-12.4); Monocytes # 0.8 K/mcL (0.0-1.3); Neutrophils # 6.2 K/mcL (1.6-8.9); Platelet Count 497 K/mcL (140-400); Red Blood Count 2.92 M/mcL (4.19-5.50); Segmented Neutrophils % 63.4 %; White Blood Count 9.8 K/mcL (4.3-11.1)
[2021-09-25 01:18] LABS: Calcium 8.3 mg/dL (8.6-10.3); Potassium 3.9 mEq/L (3.5-5.1)
[2021-09-25] MEDS: Aspirin Enteric Coated 81 MG Tablet PO SCH (09:29)
[2021-09-25] MEDS: Furosemide 20 MG/2 ML VIAL IVP SCH ×2 (09:30→20:22)
[2021-09-25] MEDS: Insulin LISPRO 300 UNITS/3 ML VIAL SUBQ SCH ×4 (09:31→20:30)
[2021-09-25] MEDS: carvediloL 6.25 MG TABLET PO SCH ×2 (09:34→16:43)
[2021-09-25] MEDS: Iron Sucrose Complex 250 MG in 0.9 % Sodium Chloride 250 ML IVPB SCH (09:58)
[2021-09-25] MEDS ORDERED: Sennosides/Docusate Sodium TABLET PO PRN (12:37)
[2021-09-25] MEDS ORDERED: *HR* Metoprolol 5 MG/5 ML VIAL IVP PRN (12:40)
[2021-09-26 03:30] LABS: White Blood Count 9.4 K/mcL (4.3-11.1)
[2021-09-26 03:31] LABS: Basophils # 0.1 K/mcL (0.0-0.2); Basophils % 0.7 %; Eosinophils # 0.8 K/mcL (0.0-0.6); Eosinophils % 8.7 %; Hematocrit 24.7 % (37.5-50.1); Hemoglobin 7.9 g/dL (12.9-16.9); Immature Granulocytes % 0.4 % (0-4); Lymphocytes # 2.2 K/mcL (0.6-4.6); Lymphocytes % 22.8 %; Mean Corpuscular Hemoglobin 27.9 pg (28.0-33.3); Mean Corpuscular Volume 87.3 fL (83.0-100.0); Mean Platelet Volume 9.6 fL (9.4-12.4); Monocytes # 0.9 K/mcL (0.0-1.3); Monocytes % 9.7 %; Neutrophils # 5.4 K/mcL (1.6-8.9); Platelet Count 524 K/mcL (140-400); Red Blood Count 2.83 M/mcL (4.19-5.50); Red Cell Distribution Width 14.7 % (11.5-14.5); Segmented Neutrophils % 57.7 %
[2021-09-26 04:19] LABS: Calcium 8.4 mg/dL (8.6-10.3); Potassium 3.7 mEq/L (3.5-5.1)
[2021-09-26] MEDS: hydrALAZINE 25 MG TABLET PO SCH ×2 (08:15→14:43)
[2021-09-26] MEDS: Aspirin Enteric Coated 81 MG Tablet PO SCH (08:15)
[2021-09-26] MEDS: carvediloL 6.25 MG TABLET PO SCH ×2 (08:15→14:43)
[2021-09-26] MEDS: Furosemide 20 MG/2 ML VIAL IVP SCH ×2 (08:16→21:02)
[2021-09-26] MEDS: Insulin LISPRO 300 UNITS/3 ML VIAL SUBQ SCH ×4 (08:16→21:21)
[2021-09-26 11:49] LABS: Hematocrit 26.5 % (37.5-50.1); Hemoglobin 8.7 g/dL (12.9-16.9)
[2021-09-26] MEDS ORDERED: Nitroglycerin 1,000 MCG/5 ML VIAL IV ONE (14:49)
[2021-09-26] MEDS ORDERED: ISOVUE-370 200 ML INFUS..BTL ONE (14:49)
[2021-09-26] MEDS ORDERED: 0.9 % Sodium Chloride 2,000 ML ONE (14:49)
[2021-09-26] MEDS ORDERED: *HR* Heparin 10,000 UNIT/10 ML VIAL ONE (14:49)
[2021-09-26] MEDS ORDERED: Heparin 1,000 UNITS/500 mL 500 ML ONE (14:49)
[2021-09-26] MEDS ORDERED: *HR* Midazolam HCl 2 MG/2 ML VIAL ONE (15:29)
[2021-09-26] MEDS ORDERED: *HR* FentaNYL (PF) 100 MCG/2 ML VIAL ONE (15:29)
[2021-09-27 05:55] LABS: Hematocrit 25.1 % (37.5-50.1); Hemoglobin 8.1 g/dL (12.9-16.9); Mean Corpuscular HGB Conc 32.3 g/dL (31.6-35.5); Mean Corpuscular Hemoglobin 27.9 pg (28.0-33.3); Mean Corpuscular Volume 86.6 fL (83.0-100.0); Mean Platelet Volume 9.5 fL (9.4-12.4); Platelet Count 511 K/mcL (140-400); Red Cell Distribution Width 15.2 % (11.5-14.5)
[2021-09-27 06:14] LABS: Calcium 8.6 mg/dL (8.6-10.3); Magnesium 1.9 mg/dL (1.6-2.6); Potassium 3.9 mEq/L (3.5-5.1)
[2021-09-27] MEDS: Furosemide 20 MG TABLET PO SCH ×2 (09:57→17:00)
[2021-09-27] MEDS: Aspirin Enteric Coated 81 MG Tablet PO SCH (09:58)
[2021-09-27] MEDS: hydrALAZINE 25 MG TABLET PO SCH ×4 (09:58→23:07)
[2021-09-27] MEDS: carvediloL 6.25 MG TABLET PO SCH ×2 (10:00→17:01)
[2021-09-27] MEDS: Insulin LISPRO 300 UNITS/3 ML VIAL SUBQ SCH ×4 (10:01→20:53)
[2021-09-27] MEDS: polyethylene glycoL 3350 17 GM POWD.PACK PO SCH (17:00)
[2021-09-27] MEDS: Sennosides/Docusate Sodium TABLET PO SCH (17:01)
[2021-09-28 02:07] LABS: Hematocrit 25.6 % (37.5-50.1); Hemoglobin 8.2 g/dL (12.9-16.9); Mean Corpuscular Hemoglobin 28.2 pg (28.0-33.3); Mean Platelet Volume 9.2 fL (9.4-12.4); Platelet Count 498 K/mcL (140-400); Red Blood Count 2.91 M/mcL (4.19-5.50); Red Cell Distribution Width 15.3 % (11.5-14.5); White Blood Count 10.7 K/mcL (4.3-11.1)
[2021-09-28 02:30] LABS: Calcium 8.2 mg/dL (8.6-10.3); Potassium 3.9 mEq/L (3.5-5.1)
[2021-09-28] MEDS: hydrALAZINE 25 MG TABLET PO SCH ×4 (10:02→20:19)
[2021-09-28] MEDS: polyethylene glycoL 3350 17 GM POWD.PACK PO SCH (10:02)
[2021-09-28] MEDS: Insulin LISPRO 300 UNITS/3 ML VIAL SUBQ SCH ×4 (10:02→20:54)
[2021-09-28] MEDS: carvediloL 6.25 MG TABLET PO SCH ×2 (10:03→17:46)
[2021-09-28] MEDS: Furosemide 20 MG TABLET PO SCH ×2 (10:03→17:46)
[2021-09-28] MEDS: Sennosides/Docusate Sodium TABLET PO SCH ×2 (10:03→20:19)
[2021-09-28] MEDS: Aspirin Enteric Coated 81 MG Tablet PO SCH (10:03)
[2021-09-28] MEDS: Isosorbide MONOnitrate (24 HR) 60 MG TAB.ER.24H PO SCH (12:33)
[2021-09-29] MEDS: Aspirin Enteric Coated 81 MG Tablet PO SCH (08:41)
[2021-09-29] MEDS: Furosemide 20 MG TABLET PO SCH ×2 (08:41→18:30)
[2021-09-29] MEDS: hydrALAZINE 25 MG TABLET PO SCH ×3 (08:41→20:16)
[2021-09-29] MEDS: carvediloL 6.25 MG TABLET PO SCH ×2 (08:42→18:30)
[2021-09-29] MEDS: polyethylene glycoL 3350 17 GM POWD.PACK PO SCH (08:42)
[2021-09-29] MEDS: Sennosides/Docusate Sodium TABLET PO SCH ×2 (08:42→20:15)
[2021-09-29] MEDS: Isosorbide MONOnitrate (24 HR) 60 MG TAB.ER.24H PO SCH (08:42)
[2021-09-29] MEDS: Insulin LISPRO 300 UNITS/3 ML VIAL SUBQ SCH ×4 (08:43→20:18)
[2021-09-30] MEDS: Insulin LISPRO 300 UNITS/3 ML VIAL SUBQ SCH ×4 (09:16→22:37)
[2021-09-30] MEDS: polyethylene glycoL 3350 17 GM POWD.PACK PO SCH (09:17)
[2021-09-30] MEDS: Aspirin Enteric Coated 81 MG Tablet PO SCH (09:17)
[2021-09-30] MEDS: carvediloL 6.25 MG TABLET PO SCH ×2 (09:17→17:15)
[2021-09-30] MEDS: Sennosides/Docusate Sodium TABLET PO SCH ×3 (09:17→22:42)
[2021-09-30] MEDS: hydrALAZINE 25 MG TABLET PO SCH ×3 (09:18→22:38)
[2021-09-30] MEDS: Isosorbide MONOnitrate (24 HR) 60 MG TAB.ER.24H PO SCH (09:18)
[2021-09-30] MEDS: Furosemide 20 MG TABLET PO SCH ×2 (09:18→17:15)
[2021-10-01] MEDS: carvediloL 6.25 MG TABLET PO SCH ×2 (08:58→17:35)
[2021-10-01] MEDS: hydrALAZINE 25 MG TABLET PO SCH ×3 (08:58→22:09)
[2021-10-01] MEDS: Furosemide 20 MG TABLET PO SCH ×2 (08:58→17:35)
[2021-10-01] MEDS: Isosorbide MONOnitrate (24 HR) 60 MG TAB.ER.24H PO SCH (08:58)
[2021-10-01] MEDS: Sennosides/Docusate Sodium TABLET PO SCH ×2 (08:58→22:14)
[2021-10-01] MEDS: Aspirin Enteric Coated 81 MG Tablet PO SCH (08:58)
[2021-10-01] MEDS: Insulin LISPRO 300 UNITS/3 ML VIAL SUBQ SCH ×4 (08:59→22:08)
[2021-10-01] MEDS: polyethylene glycoL 3350 17 GM POWD.PACK PO SCH (09:01)
[2021-10-01] MEDS: Acetaminophen 325 MG TABLET PO PRN (22:09)
[2021-10-02] MEDS: Insulin LISPRO 300 UNITS/3 ML VIAL SUBQ SCH ×4 (09:46→20:56)
[2021-10-02] MEDS: Sennosides/Docusate Sodium TABLET PO SCH ×2 (10:06→20:59)
[2021-10-02] MEDS: Furosemide 20 MG TABLET PO SCH ×2 (10:06→17:46)
[2021-10-02] MEDS: hydrALAZINE 25 MG TABLET PO SCH ×3 (10:06→20:59)
[2021-10-02] MEDS: Aspirin Enteric Coated 81 MG Tablet PO SCH (10:06)
[2021-10-02] MEDS: carvediloL 6.25 MG TABLET PO SCH ×2 (10:07→17:46)
[2021-10-02] MEDS: Isosorbide MONOnitrate (24 HR) 60 MG TAB.ER.24H PO SCH (10:07)
[2021-10-02] MEDS: polyethylene glycoL 3350 17 GM POWD.PACK PO SCH (10:07)
[2021-10-03] MEDS: Insulin LISPRO 300 UNITS/3 ML VIAL SUBQ SCH ×2 (08:45→12:15)
[2021-10-03] MEDS: Sennosides/Docusate Sodium TABLET PO SCH (08:45)
[2021-10-03] MEDS: Furosemide 20 MG TABLET PO SCH (08:45)
[2021-10-03] MEDS: Aspirin Enteric Coated 81 MG Tablet PO SCH (08:45)
[2021-10-03] MEDS: Isosorbide MONOnitrate (24 HR) 60 MG TAB.ER.24H PO SCH (08:46)
[2021-10-03] MEDS: carvediloL 6.25 MG TABLET PO SCH (08:46)
[2021-10-03] MEDS: polyethylene glycoL 3350 17 GM POWD.PACK PO SCH (08:46)
[2021-10-03] MEDS: hydrALAZINE 25 MG TABLET PO SCH (08:46)
[2021-10-03 10:49] VITALS: BP 143/76; PULSE 73; TEMP 97.3; O2SAT 95
== END 2021-10-03 15:58 | DRG 133 ==
LOC: 3NENU → SUATTDRO 03:41
PROVIDERS: ADMIT Internal Medicine; ATTEND Internal Medicine

== ENCOUNTER 2021-11-20 16:19 | Observation (INO) ==
[2021-11-20] MEDS ORDERED: Naloxone 0.4 MG/ML INJ IVP PRN (19:38)
[2021-11-20] MEDS ORDERED: *HR* OxyCODONE Immed Rel 5 MG TABLET PO PRN (19:38)
[2021-11-20] MEDS ORDERED: *HR* HYDROcodone/Acet 5/325 mg TABLET PO PRN (19:38)
[2021-11-20] MEDS ORDERED: Ondansetron ODT 4 MG TAB.RAPDIS SL PRN (19:38)
[2021-11-20] MEDS ORDERED: Melatonin 3 MG TABLET PO PRN (19:38)
[2021-11-20] MEDS ORDERED: Nitroglycerin 0.4 MG TAB.SUBL SL PRN (19:42)
[2021-11-20 20:12] LABS: Basophils # 0.1 K/mcL (0.0-0.2); Basophils % 0.9 %; Eosinophils # 0.4 K/mcL (0.0-0.6); Eosinophils % 4.6 %; Hematocrit 35.4 % (37.5-50.1); Hemoglobin 11.3 g/dL (12.9-16.9); Immature Granulocytes % 0.2 % (0-4); Lymphocytes # 2.3 K/mcL (0.6-4.6); Mean Corpuscular HGB Conc 31.9 g/dL (31.6-35.5); Mean Corpuscular Hemoglobin 27.6 pg (28.0-33.3); Mean Corpuscular Volume 86.3 fL (83.0-100.0); Mean Platelet Volume 9.5 fL (9.4-12.4); Monocytes # 0.9 K/mcL (0.0-1.3); Monocytes % 9.6 %; Neutrophils # 5.3 K/mcL (1.6-8.9); Platelet Count 468 K/mcL (140-400); Red Cell Distribution Width 13.7 % (11.5-14.5); Segmented Neutrophils % 58.7 %
[2021-11-20] MEDS ORDERED: Dextrose Gel 15 GM/37.5 ML TUBE PO PRN ×2 (20:12)
[2021-11-20] MEDS ORDERED: *HR* Dextrose 50 % in Water (Syg) 50 ML SYRINGE IVP PRN (20:12)
[2021-11-20] MEDS ORDERED: D5% in Water 1,000 ML IVC PRN (20:12)
[2021-11-20] MEDS: Insulin LISPRO 300 UNITS/3 ML VIAL SUBQ SCH (23:53)
[2021-11-21 02:56] LABS: Albumin/Globulin Ratio 1.1 (1.1-2.2); Bilirubin,Total 0.2 mg/dL (0.3-1.0); Calcium 8.8 mg/dL (8.6-10.3); Chol/HDL Ratio 4.8 (0-4.9); Globulin 2.8 g/dL (2.4-3.5); Magnesium 2.3 mg/dL (1.6-2.6); Phosphorous 4.8 mg/dL (2.7-4.5); Potassium 3.9 mEq/L (3.5-5.1); Total Protein 5.8 g/dL (6.4-8.9)
[2021-11-21] MEDS: Insulin LISPRO 300 UNITS/3 ML VIAL SUBQ SCH ×3 (05:36→17:37)
[2021-11-21 07:06] LABS: Estimated Average Glucose 189 mg/dl; Hemoglobin A1C 8.2 %
[2021-11-21] MEDS: Aspirin 81 MG TAB.CHEW PO SCH (08:35)
[2021-11-21] MEDS: Acetaminophen 325 MG TABLET PO PRN (08:36)
[2021-11-21] MEDS ORDERED: amLODIPine 5 MG TABLET PO SCH (09:00)
[2021-11-21] MEDS ORDERED: carvediloL 6.25 MG TABLET PO SCH (09:15)
[2021-11-21] MEDS: 0.9 % Sodium Chloride 1,000 ML IVC SCH ×2 (09:46→20:39)
[2021-11-21 16:22] LABS: Calcium 8.6 mg/dL (8.6-10.3); Potassium 4.5 mEq/L (3.5-5.1)
[2021-11-21] MEDS: Metoprolol XL (24 HR) Succ 50 MG TAB.ER.24H PO SCH (20:40)
[2021-11-21] MEDS: *HR* Heparin 5,000 UNIT/ML VIAL SQ SCH (21:30)
[2021-11-22] MEDS ORDERED: *HR* Dextrose 50 % in Water (Syg) 50 ML SYRINGE IVP PRN (03:46)
[2021-11-22] MEDS ORDERED: Dextrose Gel 15 GM/37.5 ML TUBE PO PRN ×2 (03:46)
[2021-11-22] MEDS ORDERED: D5% in Water 1,000 ML IVC PRN (03:46)
[2021-11-22] MEDS: *HR* Heparin 5,000 UNIT/ML VIAL SQ SCH ×3 (06:27→21:10)
[2021-11-22] MEDS: 0.9 % Sodium Chloride 1,000 ML IVC SCH ×2 (06:33→17:10)
[2021-11-22] MEDS: Metoprolol XL (24 HR) Succ 50 MG TAB.ER.24H PO SCH ×2 (08:06→21:10)
[2021-11-22] MEDS: amLODIPine 5 MG TABLET PO SCH (08:06)
[2021-11-22] MEDS: Acetaminophen 325 MG TABLET PO PRN (08:07)
[2021-11-22] MEDS: Insulin LISPRO 300 UNITS/3 ML VIAL SUBQ SCH ×4 (08:08→17:12)
[2021-11-22] MEDS: Aspirin 81 MG TAB.CHEW PO SCH (08:08)
[2021-11-22 10:16] LABS: Calcium 8.8 mg/dL (8.6-10.3); Potassium 4.5 mEq/L (3.5-5.1)
[2021-11-22] MEDS: cefTRIAXone 1,000 MG in 0.9 % Sodium Chloride Mini Bag 100 ML IVPB SCH (11:01)
[2021-11-22] MEDS ORDERED: Insulin LISPRO 300 UNITS/3 ML VIAL SUBQ SCH (21:00)
[2021-11-22] MEDS ORDERED: traZODone 50 MG TABLET PO PRN (21:23)
[2021-11-23] MEDS: 0.9 % Sodium Chloride 1,000 ML IVC SCH (03:10)
[2021-11-23] MEDS: *HR* Heparin 5,000 UNIT/ML VIAL SQ SCH (06:39)
[2021-11-23 07:47] VITALS: TEMP 97.8; O2SAT 98
[2021-11-23] MEDS: cefTRIAXone 1,000 MG in 0.9 % Sodium Chloride Mini Bag 100 ML IVPB SCH (08:01)
[2021-11-23] MEDS: Aspirin 81 MG TAB.CHEW PO SCH (08:03)
[2021-11-23] MEDS: Metoprolol XL (24 HR) Succ 50 MG TAB.ER.24H PO SCH (08:03)
[2021-11-23] MEDS: amLODIPine 5 MG TABLET PO SCH (08:03)
[2021-11-23] MEDS: Insulin LISPRO 300 UNITS/3 ML VIAL SUBQ SCH (08:06)
[2021-11-23 08:42] LABS: Basophils # 0.1 K/mcL (0.0-0.2); Basophils % 0.9 %; Eosinophils # 0.5 K/mcL (0.0-0.6); Eosinophils % 6.7 %; Hematocrit 33.6 % (37.5-50.1); Hemoglobin 10.8 g/dL (12.9-16.9); Immature Granulocytes % 0.4 % (0-4); Lymphocytes # 2.1 K/mcL (0.6-4.6); Lymphocytes % 25.7 %; Mean Corpuscular HGB Conc 32.1 g/dL (31.6-35.5); Mean Corpuscular Hemoglobin 27.7 pg (28.0-33.3); Mean Corpuscular Volume 86.2 fL (83.0-100.0); Mean Platelet Volume 9.3 fL (9.4-12.4); Monocytes # 0.7 K/mcL (0.0-1.3); Monocytes % 9.1 %; Neutrophils # 4.6 K/mcL (1.6-8.9); Platelet Count 437 K/mcL (140-400); Red Cell Distribution Width 13.5 % (11.5-14.5); Segmented Neutrophils % 57.2 %
[2021-11-23 08:57] LABS: Calcium 8.5 mg/dL (8.6-10.3); Potassium 4.5 mEq/L (3.5-5.1)
[2021-11-23] MEDS ORDERED: hydrALAZINE 25 MG TABLET PO PRN (09:02)
[2021-11-23 09:36] VITALS: BP 164/82; PULSE 62
== END 2021-11-23 13:07 | disposition home or self-care (01) ==
LOC: 3BNU → SUATTDRO 18:53
PROVIDERS: ADMIT Internal Medicine; ATTEND Registered Nurse